=== PATIENT | female | born 1970 | race African-American/Black ===

== ENCOUNTER 2017-04-14 20:42 | Emergency (ER) | payer SELFPAY ==
[2017-04-14 20:53] VITALS: BP 133/73
== END 2017-04-14 22:00 | disposition left against medical advice (07) ==
LOC: ER 20:42
DX: Z53.21 Procedure and treatment not carried out due to patient leaving prior to being seen by health care provider (principal)

== ENCOUNTER 2017-07-19 08:24 | Emergency (ER) | payer SELFPAY ==
[2017-07-19] MEDS ORDERED: HYDROCODONE BIT/HOMATROPINE 5-1.5 MG TABLET PO ONE (08:31)
[2017-07-19] MEDS ORDERED: IPRATROPIUM/ALBUTEROL 0.5-2.5 MG/3 ML AMPUL NEB ONE ×2 (08:32)
[2017-07-19] MEDS ORDERED: PREDNISONE 20 MG TABLET PO ONE (08:32)
--- NOTE | 2017-07-19 08:32 | ER Document Report ---
ED General - General Stated Complaint: DIFFICULTY BREATHING Time Seen by Provider: 07/19/17 08:27 Mode of Arrival: Medic Information source: Patient Notes: 47-year-old female smoker presents with complaints of productive cough 1 week duration. Patient denies any fevers or chills admits to shortness of breath. Patient notes after all this coughing she has been having some blood-tinged sputum Patient notes she only smokes 3 cigarettes a day TRAVEL OUTSIDE OF THE [place] IN LAST 30 DAYS: No - HPI Onset: Last week Onset/Duration: Persistent Quality of pain: No pain Severity: Mild Pain Level: Denies Associated symptoms: Body/muscle aches, Productive cough, Shortness of breath Exacerbated by: Movement, Walking Relieved by: Denies Similar symptoms previously: No Recently seen / treated by doctor: No - Related Data Allergies/Adverse Reactions: ibuprofen [Ibuprofen] Adverse Reaction (Verified 07/30/14 23:28) GI upset Past Medical History - Social History Smoking Status: Current Every Day Smoker Cigarette use (# per day): Yes Chew tobacco use (# tins/day): No Smoking Education Provided: Yes - Patient counselled regarding cessation for 4 minutes Family History: Arthritis, CAD, CVA, Hyperlipidemia, Hypertension Pulmonary Medical History: Reports: Hx Asthma, Hx Bronchitis Denies: Hx Pneumonia Renal/ Medical History: Denies: Hx Peritoneal Dialysis Psychiatric Medical History: Reports: Hx Anxiety, Hx Attention Deficit Hyperactivity Disorder, Hx Bipolar Disorder, Hx Depression Past Surgical History: Reports: Hx Tubal Ligation - Immunizations Immunizations up to date: No Hx Diphtheria, Pertussis, Tetanus Vaccination: Yes - unsure Review of Systems - Review of Systems Notes: REVIEW OF SYSTEMS: CONSTITUTIONAL : Denies fever, chills, or sweats. Denies recent illness. EENT: Denies eye, ear, throat, or mouth pain or symptoms. Denies nasal or sinus congestion or discharge. Denies throat, tongue, or mouth swelling or difficulty swallowing. CARDIOVASCULAR: Denies chest pain. Denies palpitations or racing or irregular heart beat. Denies ankle edema. RESPIRATORY: Admits productive cough shortness of breath. GASTROINTESTINAL: Denies abdominal pain or distention. Denies nausea, vomiting , or diarrhea. Denies blood in vomitus, stools, or per rectum. Denies black, tarry stools. Denies constipation. GENITOURINARY: Denies difficulty urinating, painful urination, burning, frequency, blood in urine, or discharge. FEMALE GENITOURINARY: Denies vaginal bleeding, heavy or abnormal periods, irregular periods. Denies vaginal discharge or odor. MUSCULOSKELETAL: Admits to body aches SKIN: Denies rash, lesions or sores. HEMATOLOGIC : Denies easy bruising or bleeding. LYMPHATIC: Denies swollen, enlarged glands. NEUROLOGICAL: Denies confusion or altered mental status. Denies passing out or loss of consciousness. Denies dizziness or lightheadedness. Denies headache. Denies weakness or paralysis or loss of use of either side. Denies problems with gait or speech. Denies sensory loss, numbness, or tingling. Denies seizures. PSYCHIATRIC: Denies anxiety or stress. Denies depression, suicidal ideation, or homicidal ideation. ALL OTHER SYSTEMS REVIEWED AND NEGATIVE. PHYSICAL EXAMINATION: GENERAL: Well-appearing, well-nourished and in mild distress secondary to pain HEAD: Atraumatic, normocephalic. EYES: Pupils equal round and reactive to light, extraocular movements intact, conjunctiva are normal. ENT: Nares patent, oropharynx clear without exudates. Moist mucous membranes. NECK: Normal range of motion, supple without lymphadenopathy LUNGS: Coarse rhonchi at the bases no respiratory distress HEART: Regular rate and rhythm without murmurs ABDOMEN: Soft, nontender, nondistended abdomen. No guarding, no rebound. No masses appreciated. Female : deferred Musculoskeletal: Normal range of motion, no pitting or edema. No cyanosis. NEUROLOGICAL: Cranial nerves grossly intact. Normal speech, normal gait. Normal sensory, motor exams PSYCH: Normal mood, normal affect. SKIN: Warm, Dry, normal turgor, no rashes or lesions noted. Dictation was performed using [employer] voice recognition software Physical Exam - Vital signs Vitals: Temp Pulse Resp BP Pulse Ox 99.1 F 92 18 166/94 H 95 07/19/17 08:30 07/19/17 08:30 07/19/17 08:30 07/19/17 08:30 07/19/17 08:30 Course - Re-evaluation Re-evalutation: 07/19/17 11:05 Patient was immediately seen upon arrival, was given breathing treatments Chest x-ray was consistent with bibasilar pneumonia, patient was started on antibiotics noted significant improvement upon discharge No DVT PE risk factors Very strict return precautions were provided After performing a Medical Screening Examination, I estimate there is LOW risk for ACUTE CORONARY SYNDROME, RESPIRATORY FAILURE, SEPSIS OR MENINGITIS, thus I consider the discharge disposition reasonable. I have reevaluated this patient multiple times and no significant life threatening changes are noted. The patient and I have discussed the diagnosis and risks, and we agree with discharging home with close follow-up. We also discussed returning to the Emergency Department immediately if new or worsening symptoms occur. We have discussed the symptoms which are most concerning (e.g., changing or worsening pain, trouble swallowing or breathing, neck stiffness, fever) that necessitate immediate return. 07/19/17 11:06 - Vital Signs Vital signs: Temp Pulse Resp BP Pulse Ox 99.1 F 92 18 166/94 H 95 07/19/17 08:30 07/19/17 08:30 07/19/17 08:30 07/19/17 08:30 07/19/17 08:30 - Diagnostic Test Radiology reviewed: Image reviewed, Reports reviewed - Bibasilar pneumonia report given to patient Discharge - Discharge Clinical Impression: Hemoptysis Pneumonia Qualifiers: Pneumonia type: due to unspecified organism Laterality: bilateral Lung location : lower lobe of lung Qualified Code(s): J18.9 - Pneumonia, unspecified organism Condition: Stable Disposition: HOME, SELF-CARE Instructions: Pneumonia ([facility]) Additional Instructions: Follow up with your physician tomorrow for further care or return to the ED IMMEDIATELY if symptoms worsen or new concerns occur. If you cannot afford to follow up with your primary care physician a list of low cost clinics have been provided at the end of your discharge papers as well. Prescriptions: Azithromycin 250 mg PO ASDIR PRN #6 tablet PRN Reason: Hydrocodone/Acetaminophen [[place] 5-325 mg Tablet] 1 tab PO Q6 #10 tablet
--- NOTE | 2017-07-19 09:56 | RADIOLOGY REPORT (SQ) ---
EXAM DESCRIPTION: CHEST PA/LAT COMPLETED DATE/TIME: 07/19/2017 9:26 am REASON FOR STUDY: cough productive blood tinge COMPARISON: 11/16/2011. EXAM PARAMETERS: NUMBER OF VIEWS: two views TECHNIQUE: Digital Frontal and Lateral radiographic views of the chest acquired. RADIATION DOSE: NA LIMITATIONS: none FINDINGS: LUNGS AND PLEURA: Basilar infiltrate best visualized on the lateral view. Possibly the le ft base behind the cardiac silhouette. No pleural effusion. No pneumothorax. MEDIASTINUM AND HILAR STRUCTURES: No masses or contour abnormalities. HEART AND VASCULAR STRUCTURES: Heart normal size. No evidence for failure. BONES: No acute findings. HARDWARE: None in the chest. OTHER: No other significant finding. IMPRESSION: BASILAR INFILTRATE SUSPICIOUS FOR PNEUMONIA. TECHNICAL DOCUMENTATION: JOB ID: [id number] [employer]- All Rights Reserved
[2017-07-19] MEDS ORDERED: ALBUTEROL SULFATE HFA (90 MCG/PUFF) 8 GM MDI (1 MDI/ER DISP) IH PRN (10:28)
[2017-07-19 11:00] VITALS: BP 151/76
== END 2017-07-19 11:01 | disposition home or self-care (01) ==
LOC: ER 08:24
DX: J18.9 Pneumonia, unspecified organism (principal); R04.2 Hemoptysis; R06.02 Shortness of breath; R05 Cough; F17.210 Nicotine dependence, cigarettes, uncomplicated
CPT/HCPCS: 94640 ×2; 99285; 87804; 71020; J7512; J3490; J7620

== ENCOUNTER 2017-08-06 14:44 | Emergency (ER) | payer SELFPAY ==
--- NOTE | 2017-08-06 15:10 | ER Document Report ---
ED Medical Screen (RME) - General Chief Complaint: Psych Problem Stated Complaint: PYSCH EVAL Time Seen by Provider: 08/06/17 15:06 Mode of Arrival: Ambulatory Information source: Patient Notes: 47-year-old female states she is being evicted from her house in 10 days and had all her my stone last night has not eaten 2 days does not qualify for Medicaid has not received her medications in over a year presents with homicidal suicidal ideations I have greeted and performed a rapid initial assessment of this patient. A comprehensive ED assessment and evaluation of the patient, analysis of test results and completion of the medical decision making process will be conducted by additional ED providers. PHYSICAL EXAMINATION: GENERAL: Well-appearing, well-nourished and in no acute distress. HEAD: Atraumatic, normocephalic. EYES: Pupils equal round extraocular movements intact, conjunctiva are normal. ENT: Nares patent NECK: Normal range of motion LUNGS: No respiratory distress Musculoskeletal: Normal range of motion NEUROLOGICAL: Normal speech, normal gait. PSYCH: Tearful SKIN: Warm, Dry, normal turgor, no rashes or lesions noted. TRAVEL OUTSIDE OF THE [place] IN LAST 30 DAYS: No - Related Data Allergies/Adverse Reactions: ibuprofen [Ibuprofen] Adverse Reaction (Verified 07/30/14 23:28) GI upset Past Medical History - Social History Chew tobacco use (# tins/day): No Frequency of alcohol use: Rare Drug Abuse: Cocaine, Marijuana Pulmonary Medical History: Reports: Hx Asthma, Hx Bronchitis Denies: Hx Pneumonia Renal/ Medical History: Denies: Hx Peritoneal Dialysis Psychiatric Medical History: Reports: Hx Anxiety, Hx Attention Deficit Hyperactivity Disorder, Hx Bipolar Disorder, Hx Depression Past Surgical History: Reports: Hx Tubal Ligation - Immunizations Immunizations up to date: No Hx Diphtheria, Pertussis, Tetanus Vaccination: Yes - unsure History of Influenza Vaccine for 08/2017 - 12/2017 Season: No Physical Exam - Vital signs Vitals: Temp Pulse Resp BP Pulse Ox 98.1 F 85 20 158/95 H 98 08/06/17 14:51 08/06/17 14:51 08/06/17 14:51 08/06/17 14:51 08/06/17 14:51 Course - Vital Signs Vital signs: Temp Pulse Resp BP Pulse Ox 98.1 F 85 20 158/95 H 98 08/06/17 14:51 08/06/17 14:51 08/06/17 14:51 08/06/17 14:51 08/06/17 14:51
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
[2017-08-06] MEDS ORDERED: LORAZEPAM 1 MG TABLET PO ONE (16:51)
[2017-08-06 17:17] LABS: ABSOLUTE EOSINOPHILS # (AUTO) 0.3 10^3/uL (0.0-0.6); ABSOLUTE LYMPHOCYTES (AUTO) 2.1 10^3/uL (0.5-4.7); ABSOLUTE MONOCYTES (AUTO) 0.5 10^3/uL (0.1-1.4); ABSOLUTE NEUT (AUTO) 2.6 10^3/uL (1.7-8.2); BASOPHILS % (AUTO) 0.6 % (0-2); EOSINOPHILS % (AUTO) 5.2 % (0-6); HEMATOCRIT 41.2 % (36.0-47.0); HEMOGLOBIN 14.2 g/dL (12.0-15.5); HGB HCT DIFFERENCE 1.4; LYMPHOCYTES % (AUTO) 38.7 % (13-45); MEAN CORPUSCULAR HEMOGLOBIN 32.9 pg (27.0-33.4); MEAN CORPUSCULAR HGB CONC 34.6 g/dL (32.0-36.0); MEAN CORPUSCULAR VOLUME 95 fl (80-97); MONOCYTES % (AUTO) 8.1 % (3-13); RED BLOOD COUNT 4.33 10^6/uL (3.72-5.28); RED CELL DISTRIBUTION WIDTH 14.1 % (11.5-14.0); SEGMENTED NEUTROPHILS % (AUTO) 47.4 % (42-78); WHITE BLOOD COUNT 5.5 10^3/uL (4.0-10.5)
[2017-08-06 17:33] LABS: APPEARANCE,URINE CLEAR; BILIRUBIN,URINE NEGATIVE (NEGATIVE); GLUCOSE, URINE NEGATIVE (NEGATIVE); KETONES,URINE NEGATIVE (NEGATIVE); LEUKOCYTE ESTERASE,URINE TRACE (NEGATIVE); NITRITE,URINE NEGATIVE (NEGATIVE); PROTEIN,URINE 30 mg/dL (NEGATIVE); URINE SPECIFIC GRAVITY 1.029
[2017-08-06 17:42] LABS: URINE BARBITURATES SCREEN NEGATIVE; URINE METHADONE SCREEN NEGATIVE; URINE OPIATES LOW NEGATIVE; URINE PHENCYCLIDINE SCREEN NEGATIVE
[2017-08-06 17:47] LABS: ALANINE AMINOTRANSFERASE 26 U/L (9-52); ALBUMIN 4.3 g/dL (3.5-5.0); ALCOHOL < 10 mg/dL (NONE DETECTED); ALKALINE PHOSPHATASE 66 U/L (38-126); ANION GAP 6 (5-19); ASPARTATE AMINO TRANSFERASE 23 U/L (14-36); BILIRUBIN,DIRECT 0.3 mg/dL (0.0-0.4); BILIRUBIN,TOTAL 0.7 mg/dL (0.2-1.3); BLOOD UREA NITROGEN 13 mg/dL (7-20); CALCIUM 9.6 mg/dL (8.4-10.2); CARBON DIOXIDE 30 mmol/L (22-30); CHLORIDE 101 mmol/L (98-107); CREATININE RESULT 0.84 mg/dL (0.52-1.25); GLUCOSE 77 mg/dL (75-110); SODIUM 137.1 mmol/L (137-145); TOTAL PROTEIN 7.5 g/dL (6.3-8.2)
[2017-08-06] MEDS ORDERED: TRAZODONE HCL 50 MG TABLET PO ONE (23:21)
[2017-08-06] MEDS ORDERED: NICOTINE 21 MG/24 HR PATCH.TD24 TD ONE (23:22)
[2017-08-07 08:06] VITALS: BP 147/71
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
--- NOTE | 2017-08-07 11:12 | EKG REPORT ---
SEVERITY:- ABNORMAL ECG - SINUS RHYTHM PROBABLE LEFT ATRIAL ABNORMALITY LEFT VENTRICULAR HYPERTROPHY : Confirmed by: Freya Webb MD 07-Aug-2017 11:12:02
== END 2017-08-07 12:15 | disposition home or self-care (01) ==
LOC: ER 14:44
DX: Z59.9 Problem related to housing and economic circumstances, unspecified (principal); F14.10 Cocaine abuse, uncomplicated; F12.10 Cannabis abuse, uncomplicated; R45.851 Suicidal ideations; R45.850 Homicidal ideations; F17.210 Nicotine dependence, cigarettes, uncomplicated; Z88.6 Allergy status to analgesic agent; Z98.51 Tubal ligation status; I10 Essential (primary) hypertension
CPT/HCPCS: 36415; 80053; 80307; 81001; 84703; 85025; 93005; 93010; 99285

== ENCOUNTER 2018-06-06 16:43 | Emergency (ER) | payer SELFPAY ==
--- NOTE | 2018-06-06 16:58 | ER Document Report ---
HPI - HPI Patient complains to provider of: Cough and congestion Onset: Other - Over a week Onset/Duration: Persistent Pain Level: 3 Context: 48-year-old female smoker complaining of cough and congestion for over a week. No chest pain or shortness of breath. No fever or chills. Associated Symptoms: None Exacerbated by: Denies Relieved by: Denies Similar symptoms previously: Yes Recently seen / treated by doctor: No - ROS ROS below otherwise negative: Yes Systems Reviewed and Negative: Yes All other systems reviewed and negative - REPRODUCTIVE Reproductive: DENIES: : Past Medical History - General Information source: Patient - Social History Smoking Status: Current Every Day Smoker Frequency of alcohol use: None Drug Abuse: None Lives with: Family Family History: Arthritis, CAD, CVA, Hyperlipidemia, Hypertension Pulmonary Medical History: Reports: Hx Asthma, Hx Bronchitis Psychiatric Medical History: Reports: Hx Anxiety, Hx Attention Deficit Hyperactivity Disorder, Hx Bipolar Disorder, Hx Depression Past Surgical History: Reports: Hx Tubal Ligation - Immunizations Immunizations up to date: No Hx Diphtheria, Pertussis, Tetanus Vaccination: Yes - unsure Vertical Provider Document - CONSTITUTIONAL Agree With Documented VS: Yes Exam Limitations: No Limitations - INFECTION CONTROL TRAVEL OUTSIDE OF THE [place] IN LAST 30 DAYS: No - HEENT HEENT: Pharyngeal Erythema. negative: Conjuctival Injection, Tympanic Membrane Red, Tympanic Membrane Bulging - NECK Neck: Supple. negative: Lymphadenopathy-Left, Lymphadenopathy-Right - RESPIRATORY Respiratory: Wheezing - Inspiratory and expiratory wheezing bilateral. negative : Rales - CARDIOVASCULAR Cardiovascular: Regular Rate, Regular Rhythm - GI/ABDOMEN Gastrointestinal: Abdomen Soft, Abdomen Non-Tender, No Organomegaly - MUSCULOSKELETAL/EXTREMETIES Musculoskeletal/Extremeties: MAEW - NEURO Level of Consciousness: Alert - DERM Integumentary: No Rash Course - Re-evaluation Re-evalutation: 06/06/18 There is minimal wheezing remaining after the breathing treatments. The chest x -ray is negative per radiologist for infiltrate. - Vital Signs Vital signs: Temp Pulse Resp BP Pulse Ox 98.9 F 75 16 159/79 H 97 06/06/18 16:51 06/06/18 16:51 06/06/18 16:51 06/06/18 16:51 06/06/18 16:51 Discharge - Discharge Clinical Impression: Asthmatic bronchitis Qualifiers: Asthma severity: unspecified severity Asthma persistence: unspecified Asthma complication type: uncomplicated Qualified Code(s): J45.909 - Unspecified asthma , uncomplicated Condition: Good Disposition: HOME, SELF-CARE Instructions: Azithromycin ([facility]), Bronchitis With Bronchospasm (Wheezing) ([facility]) , Inhaled Bronchodilators ([facility]), Stop Smoking ([facility]), Steroid Medication Additional Instructions: Plenty of fluids Return to the emergency room for any chest pain or shortness of breath or trouble breathing Use the inhaler 2 puffs every 3 hours to help get the mucus out Prednisone for 4 more days Azithromycin 250 mg daily for the next 4 days Quit smoking Prescriptions: Albuterol Sulfate [Proair HFA Inhalation Aerosol 8.5 gm MDI] 2 puff IH Q3HP PRN #1 [id number].[id number] PRN Reason: Azithromycin [Zithromax] 250 mg PO DAILY #4 tablet Prednisone [Deltasone 20 mg Tablet] 40 mg PO DAILY #8 tablet Forms: Return to Work
[2018-06-06] MEDS ORDERED: ALBUTEROL SULFATE 0.083% NEB 2.5 MG/3 ML AMPUL NEB ONE (17:06)
[2018-06-06] MEDS ORDERED: IPRATROPIUM/ALBUTEROL 0.5-2.5 MG/3 ML AMPUL NEB ONE (17:06)
[2018-06-06] MEDS ORDERED: PREDNISONE 20 MG TABLET PO ONE (17:06)
--- NOTE | 2018-06-06 18:07 | RADIOLOGY REPORT (SQ) ---
EXAM DESCRIPTION: CHEST 2 VIEWS COMPLETED DATE/TIME: 06/06/2018 5:59 pm REASON FOR STUDY: cough, wheeze COMPARISON: 07/19/2017, 11/16/2011 EXAM PARAMETERS: NUMBER OF VIEWS: two views TECHNIQUE: Digital Frontal and Lateral radiographic views of the chest acquired. RADIATION DOSE: NA LIMITATIONS: none FINDINGS: LUNGS AND PLEURA: No opacities, masses or pneumothorax. No pleural effusion. MEDIASTINUM AND HILAR STRUCTURES: No masses or contour abnormalities. HEART AND VASCULAR STRUCTURES: Borderline cardiomegaly BONES: No acute findings. HARDWARE: None in the chest. OTHER: No other significant finding. IMPRESSION: NO ACUTE RADIOGRAPHIC FINDING IN THE CHEST. TECHNICAL DOCUMENTATION: JOB ID: [id number] [employer]- All Rights Reserved Reading location - IP/workstation name: [email or web address]
[2018-06-06] MEDS ORDERED: AZITHROMYCIN 250 MG TABLET PO ONE (18:28)
[2018-06-06] MEDS ORDERED: ALBUTEROL SULFATE HFA (90 MCG/PUFF) 200 PUFF/8.5 GM MDI IH ONE (18:28)
[2018-06-06 18:46] VITALS: BP 147/73
== END 2018-06-06 18:44 | disposition home or self-care (01) ==
LOC: ER 16:43
DX: J45.909 Unspecified asthma, uncomplicated (principal); R05 Cough; I10 Essential (primary) hypertension; F17.200 Nicotine dependence, unspecified, uncomplicated
CPT/HCPCS: 94640 ×2; 99283; 71046; J7512; J3490; J7620

== ENCOUNTER 2018-09-29 05:55 | Emergency (ER) | payer SELFPAY ==
[2018-09-29] MEDS ORDERED: KETOROLAC TROMETHAMINE 60 MG/2 ML SDV IM ONE (07:13)
--- NOTE | 2018-09-29 07:20 | ER Document Report ---
ED Hand/Wrist Injury - General Chief Complaint: Hand Pain Stated Complaint: THUMB PAIN/STIFFNESS Time Seen by Provider: 09/29/18 07:13 TRAVEL OUTSIDE OF THE [place] IN LAST 30 DAYS: No - HPI Injury to: Thumb Onset: Other - 2 months Timing: Constant, Worse Quality of pain: Achy Severity: Moderate Notes: Patient is a 48-year-old female that presents to the emergency department for chief complaint of bilateral thumb pain. Patient's pain started 2 months ago. It is worse with movement and relieved some with rest. She denies taking [id number] medications. She states she feels her thumbs clicking and getting stuck. Occasionally she has to use her other hand to straighten her thumb out. 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 She is right-hand dominant. She denies any injury or trauma. She denies any swelling or redness. Past Medical History: Reviewed in chart Past Surgical History: Negative Social History: Daily tobacco. Denies drugs and alcohol Family History: Reviewed and noncontributory for presenting illness Allergies: Reviewed, see documented allergy list. REVIEW OF SYSTEMS: CONSTITUTIONAL : No fever No chills No diaphoresis No recent illness EENT: No vision changes No congestion No sore throat CARDIOVASCULAR: No chest pain No palpitations RESPIRATORY: No shortness of breath No cough No difficulty breathing GASTROINTESTINAL: No abdominal pain No nausea No vomiting No diarrhea GENITOURINARY: No dysuria No hematuria No difficulty urinating MUSCULOSKELETAL: No back pain No leg pain Bilateral thumb pain SKIN: No rashes No lesions LYMPHATIC: No swollen, enlarged glands. NEUROLOGICAL: No lightheadedness No headache No weakness No paresthesias PSYCHIATRIC: No anxiety No depression PHYSICAL EXAMINATION: Vital signs reviewed, nursing noted reviewed. GENERAL: Well-appearing, well-nourished and in no acute distress. HEAD: Atraumatic, normocephalic. EYES: Eyes appear normal, extraocular movements intact, sclera anicteric, conjunctiva are normal. ENT: nares patent, oropharynx clear without exudates. Moist mucous membranes. NECK: Normal range of motion, supple without lymphadenopathy LUNGS: Breath sounds clear to auscultation bilaterally and equal. No wheezes rales or rhonchi. HEART: Regular rate and rhythm without murmurs ABDOMEN: Soft, nontender, normoactive bowel sounds. No rebound, guarding, or rigidity. No masses appreciated. EXTREMITIES: No bony deformity. Nontender, no pitting or edema. Bilateral thumb flexion contractures able to be actively extended by patient NEUROLOGICAL: No focal neurological deficits. Moves all extremities spontaneously Motor and sensory grossly intact on exam. PSYCH: Normal mood, normal affect. SKIN: Warm, Dry, normal turgor, no rashes or lesions noted on exposed skin - Related Data Allergies/Adverse Reactions: ibuprofen [Ibuprofen] Adverse Reaction (Verified 07/30/14 23:28) GI upset Past Medical History - Social History Smoking Status: Current Every Day Smoker Family History: Arthritis, CAD, CVA, Hyperlipidemia, Hypertension Pulmonary Medical History: Reports: Hx Asthma, Hx Bronchitis Denies: Hx Pneumonia Renal/ Medical History: Denies: Hx Peritoneal Dialysis Psychiatric Medical History: Reports: Hx Anxiety, Hx Attention Deficit Hyperactivity Disorder, Hx Bipolar Disorder, Hx Depression Past Surgical History: Reports: Hx Tubal Ligation - Immunizations Immunizations up to date: No Hx Diphtheria, Pertussis, Tetanus Vaccination: Yes - unsure Physical Exam - Vital signs Vitals: Temp Pulse Resp BP Pulse Ox 97.9 F 83 20 135/79 H 96 09/29/18 05:59 09/29/18 05:59 09/29/18 05:59 09/29/18 05:59 09/29/18 05:59 Course - Re-evaluation Re-evalutation: 09/29/18 07:17 Vitals reviewed. Nursing notes reviewed. Patient has bilateral thumb flexion contractures that she is able to actively extend. She occasionally does have to passively extend her thumb because of it gets stuck. There is no history of trauma and she has no bony tenderness or deformity, x-ray not currently indicated. Patient will be started on a course of naproxen for anti- inflammatory properties. She was counseled on resting. She will be referred to orthopedics for further management. - Vital Signs Vital signs: Temp Pulse Resp BP Pulse Ox 97.9 F 83 20 135/79 H 96 09/29/18 05:59 09/29/18 05:59 09/29/18 05:59 09/29/18 05:59 09/29/18 05:59 Discharge - Discharge Clinical Impression: Dupuytren's contracture of both hands Condition: Stable Disposition: HOME, SELF-CARE Additional Instructions: Please return to the emergency department if you have any worsening, or concern of your symptoms. Please return to the emergency department if you develop chest pain, difficulty breathing, severe abdominal pain, or ongoing vomiting. Please follow-up with your primary care physician in 2-3 days and any other recommended physicians. If prescribed, take all medications as directed. If you have any questions or concerns do not hesitate to return the emergency department for evaluation. The contractures of your thumbs are related to inflammation around the tendons that allow you to bend your thumbs. This inflammation can be progressive and may ultimately require surgery for repair. It is important that you follow-up with orthopedic surgery for further evaluation and management. Prescriptions: Naproxen 500 mg PO BID PRN #30 tablet PRN Reason: Pain Scale Of 1 Forms: Return to Work Referrals: ORI MCKEON MD [ACTIVE STAFF] - Follow up in 1 week
[2018-09-29 07:49] VITALS: BP 142/78
== END 2018-09-29 07:49 | disposition home or self-care (01) ==
LOC: ER 05:55
DX: M72.0 Palmar fascial fibromatosis [Dupuytren] (principal); F17.200 Nicotine dependence, unspecified, uncomplicated; J45.909 Unspecified asthma, uncomplicated
CPT/HCPCS: 99283; 96372; J1885

== ENCOUNTER 2019-01-19 13:47 | Emergency (ER) | payer SELFPAY ==
--- NOTE | 2019-01-19 14:35 | ER Document Report ---
ED Medical Screen (RME) - General Chief Complaint: Breast Problem Stated Complaint: BREAST PROBLEM Time Seen by Provider: 01/19/19 14:28 Notes: 48-year-old female patient comes emergency room complaining of blood coming from the left nipple for the past 2 months. She also complains of bilateral thumb locking and pain for the past month, but she was actually seen here on 09/29/2018 complaining of the thumbs locking. She did not follow-up with Orth [facility] as recommended. She states she is homeless right now and has no family in the area and no job. She also complains of going through menopause at this time. I have greeted and performed a rapid initial assessment of this patient. A comprehensive ED assessment and evaluation of the patient, analysis of test results and completion of the medical decision making process will be conducted by additional ED providers. TRAVEL OUTSIDE OF THE [place] IN LAST 30 DAYS: No - Related Data Allergies/Adverse Reactions: ibuprofen [Ibuprofen] Adverse Reaction (Verified 01/19/19 13:50) GI upset Past Medical History - Social History Chew tobacco use (# tins/day): No Frequency of alcohol use: None Drug Abuse: None Pulmonary Medical History: Reports: Hx Asthma, Hx Bronchitis Denies: Hx Pneumonia Renal/ Medical History: Denies: Hx Peritoneal Dialysis Psychiatric Medical History: Reports: Hx Anxiety, Hx Attention Deficit Hyperactivity Disorder, Hx Bipolar Disorder, Hx Depression Past Surgical History: Reports: Hx Tubal Ligation - Immunizations Immunizations up to date: No Hx Diphtheria, Pertussis, Tetanus Vaccination: Yes - unsure History of Influenza Vaccine for 08/2017 - 12/2017 Season: No Physical Exam - Vital signs Vitals: Temp Pulse Resp BP Pulse Ox 98.0 F 86 16 149/101 H 98 01/19/19 13:55 01/19/19 13:55 01/19/19 13:55 01/19/19 13:55 01/19/19 13:55 Course - Vital Signs Vital signs: Temp Pulse Resp BP Pulse Ox 98.0 F 86 16 149/101 H 98 01/19/19 13:55 01/19/19 13:55 01/19/19 13:55 01/19/19 13:55 01/19/19 13:55
[2019-01-19 15:35] LABS: ABSOLUTE BASOPHILS # (AUTO) 0.1 10^3/uL (0.0-0.2); ABSOLUTE EOSINOPHILS # (AUTO) 1.4 10^3/uL (0.0-0.6); ABSOLUTE LYMPHOCYTES (AUTO) 2.9 10^3/uL (0.5-4.7); ABSOLUTE MONOCYTES (AUTO) 0.6 10^3/uL (0.1-1.4); ABSOLUTE NEUT (AUTO) 2.7 10^3/uL (1.7-8.2); EOSINOPHILS % (AUTO) 18.7 % (0-6); HEMATOCRIT 42.3 % (36.0-47.0); HEMOGLOBIN 14.7 g/dL (12.0-15.5); LYMPHOCYTES % (AUTO) 37.3 % (13-45); MEAN CORPUSCULAR HEMOGLOBIN 33.2 pg (27.0-33.4); MEAN CORPUSCULAR HGB CONC 34.8 g/dL (32.0-36.0); MEAN CORPUSCULAR VOLUME 95 fl (80-97); MONOCYTES % (AUTO) 7.3 % (3-13); PLATELET COUNT 205 10^3/uL (150-450); RED BLOOD COUNT 4.43 10^6/uL (3.72-5.28); RED CELL DISTRIBUTION WIDTH 14.3 % (11.5-14.0); SEGMENTED NEUTROPHILS % (AUTO) 35.7 % (42-78); TOTAL CELLS COUNTED % (AUTO) 100 %; WHITE BLOOD COUNT 7.7 10^3/uL (4.0-10.5)
[2019-01-19 15:55] LABS: ALANINE AMINOTRANSFERASE 19 U/L (9-52); ALBUMIN 3.9 g/dL (3.5-5.0); ALKALINE PHOSPHATASE 84 U/L (38-126); ANION GAP 8 (5-19); ASPARTATE AMINO TRANSFERASE 23 U/L (14-36); BILIRUBIN,DIRECT 0.3 mg/dL (0.0-0.4); BILIRUBIN,TOTAL 0.6 mg/dL (0.2-1.3); BLOOD UREA NITROGEN 12 mg/dL (7-20); CALCIUM 9.9 mg/dL (8.4-10.2); CARBON DIOXIDE 29 mmol/L (22-30); CHLORIDE 101 mmol/L (98-107); GLUCOSE 138 mg/dL (75-110); POTASSIUM 4.4 mmol/L (3.6-5.0); SODIUM 138.3 mmol/L (137-145); TOTAL PROTEIN 6.9 g/dL (6.3-8.2)
--- NOTE | 2019-01-19 16:10 | ER Document Report ---
Addendum entered and electronically signed by ELVIA SALEH PA-C 01/19/19 16:50: Discharge - Discharge Clinical Impression: Nipple discharge, bloody, Tendon dysfunction, Pinched nerve Condition: Good Disposition: HOME, SELF-CARE Instructions: Breast Discharge ([facility]), Breast Lumps ([facility]), Breast Self- Examination ([facility]), Tendonitis ([facility]) Additional Instructions: PLEASE CALL JOLENE DE SANTIAGO RN WHO IS OUR HEATER INSTALLER. SHE WILL HELP YOU TO COORDINATE GETTING THE REQUIRED IMAGING AND APPROPRIATE FOLLOW-UP. SHE CAN BE REACHED AT [phone]. YOU WILL NEED TO GET SCREENING MAMMOGRAM DONE AN OUTPATIENT, BUT MAKE SURE THAT YOU TOUCH BASE WITH OUR HEATER INSTALLER FIRST. IF YOU DO NOT GET IN TOUCH WITH HER RIGHT AWAY, KEEP PERSISTING. IF NEED BE, YOU CAN RETURN TO THE ER, BUT YOU WILL NEED TO GET A MAMMOGRAM TO PROPERLY DIAGNOSE YOUR NIPPLE DISCHARGE. Prescriptions: Naproxen 500 mg PO BID 10 Days #20 tablet Forms: Follow-Up Outpatient Testing Referrals: [facility] [Provider Group] - Follow up as needed Addendum entered and electronically signed by ELVIA SALEH PA-C 01/19/19 16:48: Discharge - Discharge Clinical Impression: Nipple discharge, bloody, Tendon dysfunction, Pinched nerve Condition: Good Disposition: HOME, SELF-CARE Instructions: Breast Discharge ([facility]), Breast Lumps ([facility]), Breast Self- Examination ([facility]), Tendonitis ([facility]) Additional Instructions: PLEASE CALL JOLENE DE SANTIAGO RN WHO IS OUR HEATER INSTALLER. SHE WILL HELP YOU TO COORDINATE GETTING THE REQUIRED IMAGING AND APPROPRIATE FOLLOW-UP. SHE CAN BE REACHED AT [phone]. YOU WILL NEED TO GET SCREENING MAMMOGRAM DONE AN OUTPATIENT, BUT MAKE SURE THAT YOU TOUCH BASE WITH OUR HEATER INSTALLER FIRST. IF YOU DO NOT GET IN TOUCH WITH HER RIGHT AWAY, KEEP PERSISTING. IF NEED BE, YOU CAN RETURN TO THE ER, BUT YOU WILL NEED TO GET A MAMMOGRAM TO PROPERLY DIAGNOSE YOUR NIPPLE DISCHARGE. Prescriptions: Naproxen 500 mg PO BID 10 Days #20 tablet Forms: Follow-Up Outpatient Testing Referrals: [facility] [Provider Group] - Follow up as needed Addendum entered and electronically signed by ELVIA SALEH PA-C 01/19/19 16:46: Physical Exam - Vital signs Vitals: Temp Pulse Resp BP Pulse Ox 98.0 F 86 16 149/101 H 98 01/19/19 13:55 01/19/19 13:55 01/19/19 13:55 01/19/19 13:55 01/19/19 13:55 - Notes Notes: General: Well-developed, well-nourished. In no acute distress. Non-toxic appearing. Cardiac: Well-perfused. Regular rate and rhythm. No murmurs, rubs, or gallops. Pulmonary: No respiratory distress. No cyanosis. Bilateral lung fiels are clear to auscultation. Abdominal: Non-distended. Non-rigid. Bowels sounds are present in all four quadrants. No guarding or rebound. HEENT: Head is atraumatic. Conjunctivae not reddened. No tearing. PERRL. EOMI. Orbits atraumatic. No periorbital swelling or erythema. Oropharynx is without erythema, swelling, or exudates. Neck: Supple. No adenopathy. No meningismus. Dermatologic: Warm with good turgor. No rash. Atraumatic. Chest: Atraumatic. No chest wall tenderness to palpation. Musculoskeletal: Bilateral thumbs are examined. They are atraumatic. The right shoulder is examined. It is atraumatic with full range of motion. Genitourinary: Examination deferred Neurologic: No gross neurologic deficits. Psychiatric: Normal mood. Addendum entered and electronically signed by ELVIA SALEH PA-C 01/19/19 16:43: History of Present Illiness - HPI Note: Besides the nipple drainage, patient wants to be assessed for knuckles on her t humbs that are locking up as well she is having some pain in her right shoulder that is causing numbness in 2 of her fingers of her right hand. All of this is atraumatic and she has had all of it before and has been treated for all of this before. Requesting splints for her thumbs and pain medication Original Note: ED General - General Chief Complaint: Breast Problem Stated Complaint: BREAST PROBLEM Time Seen by Provider: 01/19/19 14:28 Mode of Arrival: Ambulatory Information source: Patient TRAVEL OUTSIDE OF THE [place] IN LAST 30 DAYS: No - HPI Patient complains to provider of: Left nipple discharge Onset: Other - Symptoms for 2 months Onset/Duration: Gradual Quality of pain: No pain Severity: None Pain Level: Denies Associated symptoms: Other - Reports unintended weight loss. denies: Chills, Fever Exacerbated by: Denies Relieved by: Denies Similar symptoms previously: No Recently seen / treated by doctor: No Notes: Patient is a 48-year-old homeless -Polish female with history of tobacco abuse and coming in today to be checked for a painless left breast bloody nipple discharge. Patient relates loss of 10 pounds in the last 2 weeks. Does not have any fevers or chills. Does not know about any particular family history of breast cancer. - Related Data Allergies/Adverse Reactions: ibuprofen [Ibuprofen] Adverse Reaction (Verified 01/19/19 13:50) GI upset Past Medical History - General Information source: Patient - Social History Smoking Status: Current Some Day Smoker Chew tobacco use (# tins/day): No Frequency of alcohol use: None Drug Abuse: None Family History: Reviewed & Not Pertinent, Arthritis, CAD, CVA, Hyperlipidemia, Hypertension Patient has suicidal ideation: No Patient has homicidal ideation: No Pulmonary Medical History: Reports: Hx Asthma, Hx Bronchitis Denies: Hx Pneumonia Renal/ Medical History: Denies: Hx Peritoneal Dialysis Psychiatric Medical History: Reports: Hx Anxiety, Hx Attention Deficit Hyperactivity Disorder, Hx Bipolar Disorder, Hx Depression Past Surgical History: Reports: Hx Tubal Ligation - Immunizations Immunizations up to date: No Hx Diphtheria, Pertussis, Tetanus Vaccination: Yes - unsure Review of Systems - Review of Systems Notes: Constitutional: No fevers. No chills. EENT: No eye redness. No eye pain. No ear pain. No sore throat. Cardiovascular: No chest pain. No palpitations. Respiratory: No cough. No shortness of breath. No respiratory distress. Gastrointestinal: No abdominal pain. No nausea, vomiting, or diarrhea. Genitourinary: Atraumatic. No lesions. No pain. No discharge. Musculoskeletal: Atraumatic. No swelling. No deformities. Positive left breast nipple discharge Skin: No rash or lesions. Lymphatic: No swollen lymph nodes. Neurologic: No headache. No syncope. Psychiatric: No suicidal or homicidal ideation. Physical Exam - Vital signs Vitals: Temp Pulse Resp BP Pulse Ox 98.0 F 86 16 149/101 H 98 01/19/19 13:55 01/19/19 13:55 01/19/19 13:55 01/19/19 13:55 01/19/19 13:55 - Notes Notes: General: Well-developed, well-nourished. In no acute distress. Non-toxic appearing. Cardiac: Well-perfused. Regular rate and rhythm. No murmurs, rubs, or gallops. Chest: Bilateral breasts examined. RN there to tabulating clerk me. Breasts are symmetric bilaterally. No masses, lumps or bumps appreciated on either side. There is a serosanguineous drainage from the left nipple with nipple squeeze. There is no peau d'orange texture. There is no appreciable axillary adenopathy. Pulmonary: No respiratory distress. No cyanosis. Bilateral lung fiels are clear to auscultation. Abdominal: Non-distended. Non-rigid. Bowels sounds are present in all four quadrants. No guarding or rebound. HEENT: Head is atraumatic. Conjunctivae not reddened. No tearing. PERRL. EOMI. Orbits atraumatic. No periorbital swelling or erythema. Oropharynx is without erythema, swelling, or exudates. Neck: Supple. No adenopathy. No meningismus. Dermatologic: Warm with good turgor. No rash. Atraumatic. Chest: Atraumatic. No chest wall tenderness to palpation. Musculoskeletal: Moves all extremities well. No range of motion deficits. no muscular or joint tenderness. No paraspinal muscle tenderness. no midline spinal tenderness or step-off. Genitourinary: Examination deferred Neurologic: No gross neurologic deficits. Psychiatric: Normal mood. Course - Vital Signs Vital signs: Temp Pulse Resp BP Pulse Ox 98.0 F 86 16 149/101 H 98 01/19/19 13:55 01/19/19 13:55 01/19/19 13:55 01/19/19 13:55 01/19/19 13:55 - Laboratory Result Diagrams: 01/19/19 15:15 01/19/19 15:15 Discharge - Discharge Clinical Impression: Nipple discharge, bloody Condition: Good Disposition: HOME, SELF-CARE Instructions: Breast Discharge ([facility]), Breast Lumps ([facility]), Breast Self- Examination ([facility]) Additional Instructions: PLEASE CALL JOLENE DE SANTIAGO RN WHO IS OUR HEATER INSTALLER. SHE WILL HELP YOU TO COORDINATE GETTING THE REQUIRED IMAGING AND APPROPRIATE FOLLOW-UP. SHE CAN BE REACHED AT [phone]. YOU WILL NEED TO GET SCREENING MAMMOGRAM DONE AN OUTPATIENT, BUT MAKE SURE THAT YOU TOUCH BASE WITH OUR HEATER INSTALLER FIRST. IF YOU DO NOT GET IN TOUCH WITH HER RIGHT AWAY, KEEP PERSISTING. IF NEED BE, YOU CAN RETURN TO THE ER, BUT YOU WILL NEED TO GET A MAMMOGRAM TO PROPERLY DIAGNOSE YOUR NIPPLE DISCHARGE. Forms: Follow-Up Outpatient Testing Referrals: [facility] [Provider Group] - Follow up as needed
[2019-01-19 17:02] VITALS: BP 187/90
== END 2019-01-19 16:58 | disposition home or self-care (01) ==
LOC: ER 13:47
DX: N64.52 Nipple discharge (principal); G58.9 Mononeuropathy, unspecified; M25.511 Pain in right shoulder; F17.200 Nicotine dependence, unspecified, uncomplicated; Z88.6 Allergy status to analgesic agent; Z98.51 Tubal ligation status
CPT/HCPCS: 36415; 80053; 85025; 99283

== ENCOUNTER 2019-05-15 10:29 | Emergency (ER) | payer SELFPAY ==
--- NOTE | 2019-05-15 10:42 | ER Document Report ---
ED Medical Screen (RME) - General Chief Complaint: STD Exposure Stated Complaint: POSSIBLE STD Time Seen by Provider: 05/15/19 10:37 Notes: Patient is a 48-year-old female presents to the emergency department for potential exposure to sexually transmitted disease. Patient states a sexual contact of her called and told her that he tested positive for gonorrhea and she should be evaluated. Patient is denying any vaginal discharge, odor, abdominal pain to me at this time. I discussed with patient performing self swabs versus a pelvic exam. Patient states "you are getting paid to do this job, why should I have to self swab when I am not getting paid." Patient is agreeing to a pelvic exam. GENERAL: Alert, interacts well. No acute distress. ABDOMEN: Soft, non-tender. Non-distended. Bowel sounds present in all 4 quadrants. I have greeted and performed a rapid initial assessment of this patient. A comprehensive ED assessment and evaluation of the patient, analysis of test results and completion of the medical decision making process will be conducted by additional ED providers. I have specifically instructed the patient or family members with the patient to immediately return to any nursing staff should anything change in the patient's condition or with their chief complaint. This medical record was dictated with voice recognizing software. There may be grammatical, syntax errors that are unintended. TRAVEL OUTSIDE OF THE [place] IN LAST 30 DAYS: No - Related Data Allergies/Adverse Reactions: ibuprofen [Ibuprofen] Adverse Reaction (Verified 05/15/19 10:30) GI upset Past Medical History Pulmonary Medical History: Reports: Hx Asthma, Hx Bronchitis Denies: Hx Pneumonia Renal/ Medical History: Denies: Hx Peritoneal Dialysis Psychiatric Medical History: Reports: Hx Anxiety, Hx Attention Deficit Hyperactivity Disorder, Hx Bipolar Disorder, Hx Depression Past Surgical History: Reports: Hx Tubal Ligation - Immunizations Immunizations up to date: No Hx Diphtheria, Pertussis, Tetanus Vaccination: Yes - unsure History of Influenza Vaccine for 08/2017 - 12/2017 Season: No Physical Exam - Vital signs Vitals: Temp Pulse Resp BP Pulse Ox 98.0 F 75 16 168/76 H 98 05/15/19 10:32 05/15/19 10:32 05/15/19 10:32 05/15/19 10:32 05/15/19 10:32 Course - Vital Signs Vital signs: Temp Pulse Resp BP Pulse Ox 98.0 F 75 16 168/76 H 98 05/15/19 10:32 05/15/19 10:32 05/15/19 10:32 05/15/19 10:32 05/15/19 10:32
[2019-05-15] MEDS ORDERED: CEFTRIAXONE INJ 500 MG VIAL IM ONE (11:32)
[2019-05-15] MEDS ORDERED: LIDOCAINE 1% INJ (10 MG/ML) 10 ML MDV INJ ONE (11:33)
[2019-05-15] MEDS ORDERED: AZITHROMYCIN 1 GM SUSP PACKET PO ONE (11:34)
[2019-05-15 11:38] LABS: APPEARANCE,URINE SLIGHTLY-CLOUDY; BILIRUBIN,URINE NEGATIVE (NEGATIVE); COLOR,URINE YELLOW; GLUCOSE, URINE NEGATIVE (NEGATIVE); KETONES,URINE TRACE mg/dL (NEGATIVE); LEUKOCYTE ESTERASE,URINE MODERATE (NEGATIVE); NITRITE,URINE NEGATIVE (NEGATIVE); PROTEIN,URINE NEGATIVE (NEGATIVE); URINE SPECIFIC GRAVITY 1.024; UROBILINOGEN,URINE NEGATIVE mg/dL (<2.0)
--- NOTE | 2019-05-15 11:42 | ER Document Report ---
ED GI/ - General Chief Complaint: STD Exposure Stated Complaint: POSSIBLE STD Time Seen by Provider: 05/15/19 10:37 Notes: Patient says that her recent sexual partner called her to tell her that he has been diagnosed with gonorrhea. There contact was about 2 weeks ago when the condom he was wearing broke. Patient has no symptoms at all. No discharge. No pelvic pain. No fevers. Patient also says that for the past several months, she is been having postcoital vaginal swelling which lasts for a couple of hours and then goes away. I suggested that she check the label on the condoms and make sure there are latex free. Having sex causes her to have pain and also urinary incontinence. I advised her that she needs to follow-up with a [facility] doctor about these problems. Patient also says she is having some pressure with urination and thinks she might have a UTI. Patient also says that TRAVEL OUTSIDE OF THE [place] IN LAST 30 DAYS: No - Related Data Allergies/Adverse Reactions: ibuprofen [Ibuprofen] Adverse Reaction (Verified 05/15/19 10:30) GI upset Past Medical History - Social History Smoking Status: Current Some Day Smoker Frequency of alcohol use: None Drug Abuse: Marijuana Family History: Reviewed & Not Pertinent, Arthritis, CAD, CVA, Hyperlipidemia, Hypertension Patient has suicidal ideation: No Patient has homicidal ideation: No Pulmonary Medical History: Reports: Hx Asthma, Hx Bronchitis Denies: Hx Pneumonia Psychiatric Medical History: Reports: Hx Anxiety, Hx Attention Deficit Hyperactivity Disorder, Hx Bipolar Disorder, Hx Depression Past Surgical History: Reports: Hx Tubal Ligation - Immunizations Immunizations up to date: No Hx Diphtheria, Pertussis, Tetanus Vaccination: Yes - unsure Review of Systems - Review of Systems Notes: CONSTITUTIONAL : Denies fever. CARDIOVASCULAR: Denies chest pain. RESPIRATORY: Denies cough, chest congestion, or shortness of breath. GASTROINTESTINAL: Denies abdominal pain or nausea, vomiting, or diarrhea. GENITOURINARY: Denies difficulty or painful urinating, urinary frequency, blood in urine. Physical Exam - Vital signs Vitals: Temp Pulse Resp BP Pulse Ox 98.0 F 75 16 168/76 H 98 05/15/19 10:32 05/15/19 10:32 05/15/19 10:32 05/15/19 10:32 05/15/19 10:32 Interpretation: Normal, Hypertensive - Mildly Notes: PHYSICAL EXAMINATION: GENERAL: Well-appearing, no acute distress. HEAD: Atraumatic, normocephalic. NECK: Normal range of motion, supple. LUNGS: Breath sounds clear and equal bilaterally. HEART: Regular rate and rhythm without murmurs heard. ABDOMEN: Soft, nontender. No guarding or rebound or masses felt. Course - Re-evaluation Re-evalutation: 05/15/19 12:15 Went over patient's history and symptoms with her and she wishes to be treated for her exposure to gonorrhea as well as any other STDs. She will receive Rocephin 500 mg IM, 1 g of Zithromax p.o., and a prescription for 7-day course of metronidazole 500 mg twice a day. - Vital Signs Vital signs: Temp Pulse Resp BP Pulse Ox 98.0 F 75 16 168/76 H 98 05/15/19 10:32 05/15/19 10:32 05/15/19 10:32 05/15/19 10:32 05/15/19 10:32 - Laboratory Laboratory results interpreted by me: 05/15/19 10:45 Urine Ketones TRACE H Ur Leukocyte Esterase MODERATE H Discharge - Discharge Clinical Impression: Exposure to STD Condition: Stable Disposition: HOME, SELF-CARE Additional Instructions: Gonorrhea You have been diagnosed with gonorrhea. In men, this germ infects the urethra (and sometimes the throat). Men usually have drainage from the penis and pain with urination. In women, the germ infects the vagina and fallopian tubes. There may be discharge and pelvic pain. Some women have no symptoms at all. The infection can do permanent damage to the tubes and ovaries. It should be taken very seriously. Treatment is antibiotics. It's important that you receive all recommended medication. Use condoms to prevent spread of the infection. Because this infection is spread sexually, your sexual partner must be checked before resuming sexual relations. If a culture shows gonorrhea germs, it must be reported to the health department. Call the doctor or return at once if you develop increasing fever, rash, joint swelling, severe pelvic pain, vaginal bleeding (other than your period), or problems with your bladder or bowels. Rocephin You have been given an injection of an antibiotic called Rocephin (ceftriaxone). Sometimes the injection must be combined with antibiotic pills. For some infections, such as an uncomplicated ear infection, Rocephin provides all the antibiotic that's needed. The antibiotic will be in your body for about two days. For serious infections, we usually repeat doses of Rocephin daily. Side effects are very unusual following a shot. Women may develop vaginal yeast infections, and babies can get yeast (thrush) in the mouth following the use of antibiotics. Contact your physician if you have symptoms with this medication. Allergy to this antibiotic can result in hives, wheezing, faintness, or itching. If symptoms of allergy occur, call the doctor at once. Azithromycin Azithromycin (Zithromax) is a broad spectrum antibiotic in the same class as erythromycin. It can treat a variety of bacterial infections, but is most frequently used for respiratory infections. Azithromycin is extremely long-lasting. It accumulates in body tissues and continues to kill bacteria for many days. In order to improve absorption, Azithromycin should be taken at least one hour before or two hours after a meal. It does not have the same strong tendency to upset the stomach as erythromycin and is usually very well tolerated. Patients who have had a rash or other true allergic reactions to erythromycin should not take this medication. Call if you develop gastrointestinal distress, severe diarrhea, rash, hives, itching, or shortness of breath. Metronidazole Metronidazole (Flagyl) has been prescribed. This medication is used to kill a type of bacteria called anaerobes, and protozoan parasites such as trichomonas and Giardia. Flagyl often causes a metallic taste in the mouth and mild nausea. Do not use alcohol in any form with Flagyl (including alcohol in medication elixirs). Flagyl interacts with alcohol to cause flushing, palpitations, headache, stomach cramps, and vomiting. Do not use Flagyl if you are taking Antabuse (disulfiram). Call the doctor at once if you develop rash, shortness of breath, itching, or lightheadedness. Prescriptions: Metronidazole [Flagyl 500 mg Tablet] 500 mg PO BID #14 tablet
[2019-05-15 12:42] LABS: CHLAM PCR NOT DETECTED (NOT DETECT)
[2019-05-15 12:45] VITALS: BP 179/93
== END 2019-05-15 12:45 | disposition home or self-care (01) ==
LOC: ER 10:29
DX: Z20.2 Contact with and (suspected) exposure to infections with a predominantly sexual mode of transmission (principal); N94.10 Unspecified dyspareunia; R32 Unspecified urinary incontinence; R39.89 Other symptoms and signs involving the genitourinary system; F17.200 Nicotine dependence, unspecified, uncomplicated; F12.10 Cannabis abuse, uncomplicated; J45.909 Unspecified asthma, uncomplicated
CPT/HCPCS: 99283; 96374; 96375; 87086; 81025; 87088; 81001; 87186; 87491; 87591; Q0144; J0696

== ENCOUNTER 2019-05-22 13:41 | Emergency (ER) | payer SELFPAY ==
[2019-05-22 13:48] VITALS: BP 139/67
--- NOTE | 2019-05-22 14:07 | ER Document Report ---
ED Medical Screen (RME) - General Chief Complaint: Medication Refill Stated Complaint: MEDICATION REFILL Time Seen by Provider: 05/22/19 13:53 TRAVEL OUTSIDE OF THE [place] IN LAST 30 DAYS: No - HPI Notes: 05/22/19 14:05 Patient is a 49-year-old female with a history of mental health disorders and asthma who originally presented for new prescription of Flagyl as hers was taken after her visit a week ago for possible STD exposure. Patient was seen to have a UTI with E. coli being grown, but has not been on any antibiotics. Patient states that she does continue to have urinary frequency. Patient states that she has been having dyspnea on exertion for 2 months for the last episode as she was walking here to the emergency department. Patient states that she made it to the parking lot at the mall and had to stop because she felt like she could not breathe. Patient has also noticed some white vaginal discharge that she has had the last couple weeks. Denies any prolonged immobilization, distance travel, recent surgery/trauma, personal cancer history, hormone use, or previous DVT/PE. Denies CASTELLANO, fever, neck pain, CP, URI, n/v/d, Abd pain, back pain, or rash. I have treated and performed a rapid initial assessment of this patient. A comprehensive ED assessment and evaluation of the patient, analysis of test results and completion of medical decision making process will be conducted by a dditional ED providers. PHYSICAL EXAMINATION: GENERAL: Well-appearing, well-nourished and in no acute distress. A&Ox4. Answers questions appropriately. LUNGS: Breath sounds clear to auscultation bilaterally and equal. No wheezes rales or rhonchi. HEART: Regular rate and rhythm without murmurs, rubs, gallops. Extremities: No cyanosis, clubbing, or edema b/l. Yannick negative bilaterally. No lower extremity asymmetry. NEUROLOGICAL: Normal speech, normal gait. PSYCH: Normal mood, normal affect. - Related Data Allergies/Adverse Reactions: ibuprofen [Ibuprofen] Adverse Reaction (Verified 05/22/19 13:42) GI upset Past Medical History Pulmonary Medical History: Reports: Hx Asthma, Hx Bronchitis Denies: Hx Pneumonia Renal/ Medical History: Denies: Hx Peritoneal Dialysis Psychiatric Medical History: Reports: Hx Anxiety, Hx Attention Deficit Hype ractivity Disorder, Hx Bipolar Disorder, Hx Depression Past Surgical History: Reports: Hx Tubal Ligation - Immunizations Immunizations up to date: No Hx Diphtheria, Pertussis, Tetanus Vaccination: Yes - unsure History of Influenza Vaccine for 08/2017 - 12/2017 Season: No Physical Exam - Vital signs Vitals: Temp Pulse Resp BP Pulse Ox 98.4 F 82 16 139/67 H 97 05/22/19 13:46 05/22/19 13:46 05/22/19 13:46 05/22/19 13:46 05/22/19 13:46 Course - Vital Signs Vital signs: Temp Pulse Resp BP Pulse Ox 98.4 F 82 16 139/67 H 97 05/22/19 13:46 05/22/19 13:46 05/22/19 13:46 05/22/19 13:46 05/22/19 13:46
[2019-05-22 14:39] LABS: ABSOLUTE BASOPHILS # (AUTO) 0.1 10^3/uL (0.0-0.2); ABSOLUTE EOSINOPHILS # (AUTO) 0.7 10^3/uL (0.0-0.6); ABSOLUTE LYMPHOCYTES (AUTO) 2.9 10^3/uL (0.5-4.7); ABSOLUTE MONOCYTES (AUTO) 0.6 10^3/uL (0.1-1.4); ABSOLUTE NEUT (AUTO) 3.3 10^3/uL (1.7-8.2); BASOPHILS % (AUTO) 0.9 % (0-2); EOSINOPHILS % (AUTO) 9.3 % (0-6); HEMATOCRIT 39.5 % (36.0-47.0); HEMOGLOBIN 13.3 g/dL (12.0-15.5); LYMPHOCYTES % (AUTO) 38.1 % (13-45); MEAN CORPUSCULAR HEMOGLOBIN 32.1 pg (27.0-33.4); MEAN CORPUSCULAR HGB CONC 33.8 g/dL (32.0-36.0); MEAN CORPUSCULAR VOLUME 95 fl (80-97); MONOCYTES % (AUTO) 8.5 % (3-13); PLATELET COUNT 204 10^3/uL (150-450); RED BLOOD COUNT 4.16 10^6/uL (3.72-5.28); RED CELL DISTRIBUTION WIDTH 14.5 % (11.5-14.0); SEGMENTED NEUTROPHILS % (AUTO) 43.2 % (42-78); TOTAL CELLS COUNTED % (AUTO) 100 %; WHITE BLOOD COUNT 7.7 10^3/uL (4.0-10.5)
[2019-05-22 14:45] LABS: APPEARANCE,URINE SLIGHTLY-CLOUDY; BILIRUBIN,URINE SMALL (NEGATIVE); COLOR,URINE AMBER; GLUCOSE, URINE NEGATIVE (NEGATIVE); KETONES,URINE TRACE mg/dL (NEGATIVE); LEUKOCYTE ESTERASE,URINE NEGATIVE (NEGATIVE); NITRITE,URINE NEGATIVE (NEGATIVE); PROTEIN,URINE 30 mg/dL (NEGATIVE); URINE SPECIFIC GRAVITY 1.029
[2019-05-22 14:56] LABS: ALANINE AMINOTRANSFERASE 26 U/L (9-52); ALBUMIN 3.3 g/dL (3.5-5.0); ALKALINE PHOSPHATASE 64 U/L (38-126); ASPARTATE AMINO TRANSFERASE 23 U/L (14-36); BILIRUBIN,DIRECT 0.2 mg/dL (0.0-0.4); BILIRUBIN,TOTAL 0.5 mg/dL (0.2-1.3); BLOOD UREA NITROGEN 9 mg/dL (7-20); CALCIUM 9.2 mg/dL (8.4-10.2); CREATINE KINASE 122 U/L (30-135); POTASSIUM 4.7 mmol/L (3.6-5.0); TOTAL PROTEIN 5.7 g/dL (6.3-8.2)
[2019-05-22 15:01] LABS: ANION GAP 3 (5-19); CARBON DIOXIDE 31 mmol/L (22-30); CHLORIDE 106 mmol/L (98-107); SODIUM 140.3 mmol/L (137-145)
[2019-05-22 15:04] LABS: GLUCOSE 68 mg/dL (75-110)
[2019-05-22 15:07] LABS: NT PRO BNP 324 pg/mL (<125)
[2019-05-22 15:10] LABS: TROPONIN I < 0.012 ng/mL
--- NOTE | 2019-05-22 15:47 | RADIOLOGY REPORT (SQ) ---
EXAM DESCRIPTION: CHEST 2 VIEWS COMPLETED DATE/TIME: 05/22/2019 3:37 pm REASON FOR STUDY: AGUIRRE COMPARISON: 06/06/2018 EXAM PARAMETERS: NUMBER OF VIEWS: two views TECHNIQUE: Digital Frontal and Lateral radiographic views of the chest acquired. RADIATION DOSE: NA LIMITATIONS: none FINDINGS: LUNGS AND PLEURA: No opacities, masses or pneumothorax. No pleural effusion. MEDIASTINUM AND HILAR STRUCTURES: No masses or contour abnormalities. HEART AND VASCULAR STRUCTURES: Heart normal size. No evidence for failure. BONES: No acute findings. HARDWARE: None in the chest. OTHER: No other significant finding. IMPRESSION: NO ACUTE RADIOGRAPHIC FINDING IN THE CHEST. TECHNICAL DOCUMENTATION: JOB ID: [id number] [employer]- All Rights Reserved Reading location - IP/workstation name: [email or web address]
--- NOTE | 2019-05-22 21:22 | EKG REPORT ---
SEVERITY:- ABNORMAL ECG - SINUS RHYTHM PROBABLE LEFT ATRIAL ABNORMALITY LEFT VENTRICULAR HYPERTROPHY : Confirmed by: Piyush Dougherty MD 22-May-2019 21:22:18
--- NOTE | 2019-05-22 22:01 | ER Document Report ---
Entered by HARVEY SIMMONS SCRIBE 05/22/19 [id number] Acting as scribe for:JAIR ZELAYA DO ED General - General Chief Complaint: Medication Refill Stated Complaint: MEDICATION REFILL Time Seen by Provider: 05/22/19 13:53 Primary Care Provider: [facility] [Provider Group] - Follow up as needed Mode of Arrival: Ambulatory Information source: Patient Notes: Patient is a 49 year old female, currently homeless, presenting to the emergency department complaining of multiple symptoms. Patient complains of shortness of breath that worsened today while walking in the heat with associated chest pressure and mid to upper back pain. She also complains of being able to intermittently express white and bloody discharge from left nipple onset several months ago. Patient states she was also told there was a lump in her left breast. Patient was recently seen in this ED on 05/15/20 for possible STD exposure and reports she lost the medication that was given to her and also asks for a possible refill. Of note, patient mentions she has not eaten in several days and states she unable to get to the resources available to her. 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 TRAVEL OUTSIDE OF THE [place] IN LAST 30 DAYS: No - Related Data Allergies/Adverse Reactions: ibuprofen [Ibuprofen] Adverse Reaction (Verified 05/22/19 13:42) GI upset Past Medical History - General Information source: Patient - Social History Smoking Status: Current Every Day Smoker Cigarette use (# per day): Yes Chew tobacco use (# tins/day): No Frequency of alcohol use: None Drug Abuse: None Family History: Reviewed & Not Pertinent, Arthritis, CAD, CVA, Hyperlipidemia, Hypertension Patient has suicidal ideation: No Patient has homicidal ideation: No Pulmonary Medical History: Reports: Hx Asthma, Hx Bronchitis Psychiatric Medical History: Reports: Hx Anxiety, Hx Attention Deficit Hyperactivity Disorder, Hx Bipolar Disorder, Hx Depression Past Surgical History: Reports: Hx Tubal Ligation - Immunizations Immunizations up to date: No Hx Diphtheria, Pertussis, Tetanus Vaccination: Yes - unsure Review of Systems - Review of Systems Constitutional: No symptoms reported EENT: No symptoms reported Cardiovascular: See HPI, Chest pain Respiratory: See HPI, Short of breath Gastrointestinal: No symptoms reported Genitourinary: No symptoms reported Female Genitourinary: No symptoms reported Musculoskeletal: See HPI Skin: See HPI - Nipple discharge Hematologic/Lymphatic: See HPI Neurological/Psychological: No symptoms reported -: Yes All other systems reviewed and negative Physical Exam - Vital signs Vitals: Temp Pulse Resp BP Pulse Ox 98.4 F 82 16 139/67 H 97 05/22/19 13:46 05/22/19 13:46 05/22/19 13:46 05/22/19 13:46 05/22/19 13:46 - Notes Notes: GENERAL: Alert, interacts well. No acute distress. HEAD: Normocephalic, atraumatic. EYES: Pupils equal, round, and reactive to light. Extraocular movements intact. ENT: Oral mucosa moist, tongue midline. NECK: Full range of motion. Supple. Trachea midline. LUNGS: Clear to auscultation bilaterally, no wheezes, rales, or rhonchi. No respiratory distress. Able to express a small amount of white discharge from right breast nipple, no discharge from left breast. No mass palpated in breasts bilaterally. HEART: Regular rate and rhythm. No murmurs, gallops, or rubs. ABDOMEN: Soft, non-tender. Non-distended. Bowel sounds present in all 4 quadrants. No guarding, rigidity, or rebound. EXTREMITIES: Moves all 4 extremities spontaneously. NEUROLOGICAL: Alert and oriented x3. Normal speech. PSYCH: Normal affect, normal mood. SKIN: Warm, dry, normal turgor. No rashes or lesions noted. Course - Re-evaluation Re-evalutation: 05/22/19 16:51 CBC unremarkable, CMP shows slight low glucose at 68, patient has not had anything to eat since . States she is homeless and has been banned from the soup kitchen for throwing juice at somebody. proBNP mildly elevated at 324 but this is not significant, troponin negative, urinalysis shows trace ketones, no signs of infection. It appears that her prior E. coli UTI was cured by the Rocephin and Zithromax that was given empirically for exposure to gonorrhea. Gonorrhea and chlamydia swabs of come back negative. Patient is no longer having vaginal discharge. No need to treat her with Flagyl at this time. Chest x-ray shows no acute process and there is no cardiomegaly. No need for further antibiotics at this time. Patient is being given a copy of the street sheet with all the resources including food pantries and soup john in the area. Patient will be fed a full meal here. Patient is additionally concerned by the fact that she has been having some nip ple discharge going on for several months. States that her doctor 6 months to a year ago told her she had a lump in her breast. My examination did not reveal any lump in her left breast however she is aware that she will need to follow-up to have a mammogram performed if somebody has reported to her that she has a lump in her breast. Currently the discharge is not consistent with any infection. There is a minimal amount of thick whitish discharge expressed from the right nipple, none can be expressed from the left nipple. This appears to be physiologic however it does need follow-up. Patient's name has been given to Dae Sim RN, the sharepoint manager for referral to the breast imaging center for assistance in obtaining a mammogram. Patient's shortness of breath and chest pressure completely resolved after resting for 10 minutes. Patient was walking around in some of the hottest weather of the season with a very high heat index. There is no evidence of heat stroke at this time however patient is encouraged to stay inside it places like the mall or the library in order to take advantage of the air conditioning and keep her exertion to a minimum. Patient states that she walks everywhere and has been having this intermittent shortness of breath and chest pressure for we ll over a year. No evidence of MO at this time. I have encouraged the patient to follow-up with her primary care physician/the [facility] as an outpatient for further evaluation and consideration of referral to a hat cutter for stress test if they think it is necessary. - Vital Signs Vital signs: Temp Pulse Resp BP Pulse Ox 98.4 F 82 16 139/67 H 97 05/22/19 13:46 05/22/19 13:46 05/22/19 13:46 05/22/19 13:46 05/22/19 13:46 - Laboratory Result Diagrams: 05/22/19 14:21 05/22/19 14:21 Laboratory results interpreted by me: 05/22/19 05/22/19 05/22/19 14:21 14:21 14:21 RDW 14.5 H Eosinophils % 9.3 H Absolute Eosinophils 0.7 H Carbon Dioxide 31 H Anion Gap 3 L Est GFR (Non-Af Amer) 54 L Glucose 68 L NT-Pro-B Natriuret Pep 324 H Total Protein 5.7 L Albumin 3.3 L Urine Protein Urine Ketones Urine Bilirubin Urine Urobilinogen 05/22/19 14:21 RDW Eosinophils % Absolute Eosinophils Carbon Dioxide Anion Gap Est GFR (Non-Af Amer) Glucose NT-Pro-B Natriuret Pep Total Protein Albumin Urine Protein 30 H Urine Ketones TRACE H Urine Bilirubin SMALL H Urine Urobilinogen 2.0 H - EKG Interpretation by Me Additional EKG results interpreted by me: 05/22/19 16:58 EKG shows sinus rhythm at a rate of 65, normal axis, normal intervals, no ST segment elevations or depressions, there are T wave inversions noted in aVL and V2 per my interpretation. Discharge - Discharge Clinical Impression: Dyspnea on exertion, Discharge from left nipple, Homelessness, Food deprivation, Has difficulty accessing primary care provider for most visits Condition: Stable Disposition: HOME, SELF-CARE Additional Instructions: Please drink plenty of fluids. Please make sure you eat at least one meal a day. We have given you a copy of a resource list that includes food pantries, soup john and homeless shelters all throughout the [facility]. It is incredibly hot out at this time and very humid, it is very important that you stay out of the heat as much as possible and avoid exerting yourself as much as possible during the peak heat of the day. Please consider staying at places like the mall or the library during the day to stay in the air conditioning. I have given you name to 1 of our case manager specialist to help arrange for a mammogram as an outpatient. Please also call the [facility] to arrange follow-up. They do frequently have ways to help you get transportation to the [facility]. Please return to the emergency department if you have a return of your shortness of breath or your chest pressure. Referrals: [facility] [Provider Group] - Follow up as needed I personally performed the services described in the documentation, reviewed and edited the documentation which was dictated to the scribe in my presence, and it accurately records my words and actions.
== END 2019-05-22 17:37 | disposition home or self-care (01) ==
LOC: ER 13:41
DX: R06.09 Other forms of dyspnea (principal); R06.02 Shortness of breath; R07.89 Other chest pain; T73.0XXA Starvation, initial encounter; X58.XXXA Exposure to other specified factors, initial encounter; M54.9 Dorsalgia, unspecified; N64.52 Nipple discharge; Z59.0 Homelessness; F17.210 Nicotine dependence, cigarettes, uncomplicated; J45.909 Unspecified asthma, uncomplicated; Z87.440 Personal history of urinary (tract) infections
CPT/HCPCS: 36415; 71046; 80053; 81001; 81025; 82550; 83880; 84484; 85025; 87086; 93005; 93010; 99283

== ENCOUNTER 2019-06-28 08:09 | Emergency (ER) | payer SELFPAY ==
[2019-06-28] MEDS ORDERED: ONDANSETRON 4 MG TAB.RAPDIS PO ONE (09:00)
--- NOTE | 2019-06-28 09:04 | ER Document Report ---
ED Medical Screen (RME) - General Chief Complaint: Abdominal Pain Stated Complaint: ABDOMINAL PAIN Time Seen by Provider: 06/28/19 08:56 Mode of Arrival: Wheelchair Information source: Patient Notes: This 49-year-old female presents emergency department with generalized abdominal pain increased pain in the epigastric area with palpation. Patient reports her stomach's been upset for the past 4 days. She has vomited twice in the last 4 days felt very nauseated. Reports she had a last normal bowel movement 1 week ago with a small BM this morning after she disimpacted herself. Denies past medical history of chronic abdominal issues such as IBS Crohn's diverticulitis. Denies history of constipation. She complains of rectal irritation.. Denies past medical history. Denies fever. I have greeted and performed a rapid initial assessment of this patient. A comprehensive ED assessment and evaluation of the patient, analysis of test results and completion of the medical decision making process will be conducted by additional ED providers. Dictation of this chart was performed using voice recognition software; therefore, there may be some unintended grammatical errors. TRAVEL OUTSIDE OF THE [place] IN LAST 30 DAYS: No - Related Data Allergies/Adverse Reactions: ibuprofen [Ibuprofen] Adverse Reaction (Verified 06/28/19 08:14) GI upset Past Medical History Pulmonary Medical History: Reports: Hx Asthma, Hx Bronchitis Denies: Hx Pneumonia Renal/ Medical History: Denies: Hx Peritoneal Dialysis Psychiatric Medical History: Reports: Hx Anxiety, Hx Attention Deficit Hyperactivity Disorder, Hx Bipolar Disorder, Hx Depression Past Surgical History: Reports: Hx Tubal Ligation - Immunizations Immunizations up to date: No Hx Diphtheria, Pertussis, Tetanus Vaccination: Yes - unsure History of Influenza Vaccine for 08/2017 - 12/2017 Season: No Physical Exam - Vital signs Vitals: Temp Pulse Resp BP Pulse Ox 97.8 F 72 23 H 182/91 H 100 06/28/19 08:18 06/28/19 08:18 06/28/19 08:18 06/28/19 08:18 06/28/19 08:18 Course - Vital Signs Vital signs: Temp Pulse Resp BP Pulse Ox 97.8 F 72 23 H 182/91 H 100 06/28/19 08:18 06/28/19 08:18 06/28/19 08:18 06/28/19 08:18 06/28/19 08:18
--- NOTE | 2019-06-28 09:34 | RADIOLOGY REPORT (SQ) ---
EXAM DESCRIPTION: KUB/ABDOMEN (SINGLE VIEW) COMPLETED DATE/TIME: 06/28/2019 9:26 am REASON FOR STUDY: abd pain, constipation COMPARISON: None. NUMBER OF VIEWS: One view. TECHNIQUE: Supine radiographic image of the abdomen acquired. LIMITATIONS: None. FINDINGS: BOWEL GAS PATTERN: Normal bowel gas pattern. No dilated loops. Unremarkable fecal burden. CALCIFICATIONS: No suspicious calcifications. Scattered pelvic phleboliths. SOFT TISSUES: No gross mass or suggestion of organomegaly. HARDWARE: None in the abdomen. BONES: No acute fracture dislocation. Mild lower lumbar spondylosis and facet arthropathy. OTHER: No other significant finding. IMPRESSION: No evidence of intestinal obstruction or other acute intra-abdominal/pelvic process. Un remarkable fecal burden. TECHNICAL DOCUMENTATION: JOB ID: [id number] [employer]- All Rights Reserved Reading location - IP/workstation name: [email or web address]
[2019-06-28 09:42] LABS: ABSOLUTE LYMPHOCYTES (AUTO) 2.2 10^3/uL (0.5-4.7); ABSOLUTE MONOCYTES (AUTO) 0.6 10^3/uL (0.1-1.4); ABSOLUTE NEUT (AUTO) 4.1 10^3/uL (1.7-8.2); BASOPHILS % (AUTO) 0.4 % (0-2); EOSINOPHILS % (AUTO) 12.1 % (0-6); HEMATOCRIT 41.3 % (36.0-47.0); LYMPHOCYTES % (AUTO) 27.7 % (13-45); MEAN CORPUSCULAR HEMOGLOBIN 32.4 pg (27.0-33.4); MEAN CORPUSCULAR HGB CONC 33.9 g/dL (32.0-36.0); MEAN CORPUSCULAR VOLUME 96 fl (80-97); MONOCYTES % (AUTO) 7.7 % (3-13); PLATELET COUNT 203 10^3/uL (150-450); RED BLOOD COUNT 4.31 10^6/uL (3.72-5.28); RED CELL DISTRIBUTION WIDTH 14.2 % (11.5-14.0); SEGMENTED NEUTROPHILS % (AUTO) 52.1 % (42-78); TOTAL CELLS COUNTED % (AUTO) 100 %; WHITE BLOOD COUNT 7.9 10^3/uL (4.0-10.5)
[2019-06-28 09:56] LABS: ALBUMIN 3.7 g/dL (3.5-5.0); ALKALINE PHOSPHATASE 66 U/L (38-126); ANION GAP 5 (5-19); ASPARTATE AMINO TRANSFERASE 23 U/L (14-36); BILIRUBIN,DIRECT 0.3 mg/dL (0.0-0.4); BILIRUBIN,TOTAL 0.3 mg/dL (0.2-1.3); BLOOD UREA NITROGEN 11 mg/dL (7-20); CALCIUM 9.5 mg/dL (8.4-10.2); CARBON DIOXIDE 30 mmol/L (22-30); CHLORIDE 104 mmol/L (98-107); GLUCOSE 85 mg/dL (75-110); POTASSIUM 4.1 mmol/L (3.6-5.0); TOTAL PROTEIN 6.4 g/dL (6.3-8.2)
[2019-06-28 10:13] LABS: APPEARANCE,URINE CLEAR; BILIRUBIN,URINE NEGATIVE (NEGATIVE); GLUCOSE, URINE NEGATIVE (NEGATIVE); KETONES,URINE TRACE mg/dL (NEGATIVE); LEUKOCYTE ESTERASE,URINE NEGATIVE (NEGATIVE); NITRITE,URINE NEGATIVE (NEGATIVE); PROTEIN,URINE NEGATIVE (NEGATIVE); URINE SPECIFIC GRAVITY 1.029
[2019-06-28 10:18] LABS: COLOR,URINE YELLOW
--- NOTE | 2019-06-28 12:39 | ER Document Report ---
Entered by SHERIDAN CHAMBERS SCRIBE 06/28/19 1132 Acting as scribe for:DEQUAN TALLEY MD ED GI/ - General Chief Complaint: Abdominal Pain Stated Complaint: ABDOMINAL PAIN Time Seen by Provider: 06/28/19 08:56 Mode of Arrival: Wheelchair Information source: Patient Notes: 41-year-old female patient with underlying psychiatric disorders including bipolar disorder, ADHD, anxiety and depression. She comes emergency room today complaining of lower abdominal pain with nauseousness. At triage she was given a dose of Zofran ODT. She reports that the pain has completely resolved and she feels much better at this time. TRAVEL OUTSIDE OF THE [place] IN LAST 30 DAYS: No - Related Data Allergies/Adverse Reactions: ibuprofen [Ibuprofen] Adverse Reaction (Verified 06/28/19 08:14) GI upset Past Medical History - General Information source: Patient - Social History Smoking Status: Current Some Day Smoker Chew tobacco use (# tins/day): No Frequency of alcohol use: None Drug Abuse: None Family History: Reviewed & Not Pertinent, Arthritis, CAD, CVA, Hyperlipidemia, Hypertension Patient has suicidal ideation: No Patient has homicidal ideation: No Pulmonary Medical History: Reports: Hx Asthma, Hx Bronchitis Denies: Hx Pneumonia Renal/ Medical History: Denies: Hx Peritoneal Dialysis Psychiatric Medical History: Reports: Hx Anxiety, Hx Attention Deficit Hyperactivity Disorder, Hx Bipolar Disorder, Hx Depression Past Surgical History: Reports: Hx Tubal Ligation - Immunizations Immunizations up to date: No Hx Diphtheria, Pertussis, Tetanus Vaccination: Yes - unsure Review of Systems - Review of Systems Constitutional: No symptoms reported EENT: No symptoms reported Cardiovascular: No symptoms reported Respiratory: No symptoms reported Gastrointestinal: See HPI, Abdominal pain, Nausea Genitourinary: No symptoms reported Female Genitourinary: No symptoms reported Musculoskeletal: No symptoms reported Skin: No symptoms reported Hematologic/Lymphatic: No symptoms reported Neurological/Psychological: No symptoms reported -: Yes All other systems reviewed and negative Physical Exam - Vital signs Vitals: Temp Pulse BP 97.8 F 80 182/91 H 06/28/19 08:17 06/28/19 08:17 06/28/19 08:17 - Notes Notes: PHYSICAL EXAMINATION: GENERAL: Well-appearing, well-nourished and in no acute distress. HEAD: Atraumatic, normocephalic. EYES: Pupils equal round and reactive to light, extraocular movements intact, sclera anicteric, conjunctiva are normal. ENT: nares patent, oropharynx clear without exudates. Moist mucous membranes. NECK: Normal range of motion, supple without lymphadenopathy LUNGS: Breath sounds clear to auscultation bilaterally and equal. No wheezes rales or rhonchi. HEART: Regular rate and rhythm without murmurs ABDOMEN: Soft, nontender, normoactive bowel sounds. No guarding, no rebound. No masses appreciated. EXTREMITIES: Normal range of motion, no pitting or edema. No cyanosis. NEUROLOGICAL: Cranial nerves grossly intact. Normal speech, normal gait. Normal sensory, motor, and reflex exams. PSYCH: Normal mood, normal affect. SKIN: Warm, Dry, normal turgor, no rashes or lesions noted. Course - Re-evaluation Re-evalutation: 06/28/19 12:55 Patient's lab work and x-rays are unremarkable. She did respond quite well to the Zofran, we will discharge her with a dispense pack of Zofran, and she can fo llow-up with her primary care provider. - Vital Signs Vital signs: Temp Pulse Resp BP Pulse Ox 98 F 66 18 173/90 H 97 06/28/19 13:04 06/28/19 13:04 06/28/19 13:04 06/28/19 13:04 06/28/19 13:04 - Laboratory Result Diagrams: 06/28/19 09:10 06/28/19 09:10 Laboratory results interpreted by me: 06/28/19 06/28/19 09:10 10:00 RDW 14.2 H Eos % (Auto) 12.1 H Absolute Eos (auto) 1.0 H Urine Ketones TRACE H Urine Urobilinogen 4.0 H Urine Ascorbic Acid 40 H - Diagnostic Test Radiology reviewed: Image reviewed, Reports reviewed - KUB is unremarkable Discharge - Discharge Clinical Impression: Lower abdominal pain High blood pressure Qualifiers: Hypertension type: essential hypertension Qualified Code(s): I10 - Essential (primary) hypertension Condition: Stable Disposition: HOME, SELF-CARE Additional Instructions: Abdominal Pain There are many causes of abdominal pain. Pain can mean a serious problem requiring surgery (such as appendicitis). It can also be an innocent problem that goes away on its own (such as a viral infection). Often, time must pass to determine the cause of pain. The physician does not feel that hospitalization is necessary, at present. Things may change within the next 24 hours. Call the doctor or come back for re- examination if any problems occur, such as: (1) Pain that becomes more severe, steady, or becomes concentrated in one specific area. Also, pain that is more severe with movement or coughing. (2) Vomiting that persists or becomes more frequent. (3) Blood in the vomitus, urine, or bowel movements. Blood in the stool may have a tarry or black appearance. (4) Shaking chills or fever greater than 100 degrees F. (5) The abdomen becomes more distended or swollen. (6) Bowel movements cease. (7) Failure to improve as expected. High Blood Pressure: When your blood pressure was taken today it was elevated. Pre-hypertension/Hypertension: The patient has been informed that they may have pre-hypertension or Hypertension based on a blood pressure reading in the emergency department. I recommend that the patient call the primary care provider listed on their discharge instructions or a physician of their choice this wee to arrange follow up for further evaluation of possible pre- hypertension or Hypertension. Sometimes, stress or illness causes a temporary elevation of your blood pressure. We suggest that you get your blood pressure measured three more times during the next few days to see if this is more than a temporary abnormality. If your blood pressure is greater than 150/90 on each occasion, you must have treatment. Some simple things you can do to help are: If you have blood pressure medicine but aren't using it regularly, start taking it again. Get some aerobic exercise for at least 20 minutes on a daily basis. (See your doctor before begi nning a new exercise program.) Eat a low-fat diet. Lose excess weight. Avoid salty foods and avoid adding salt to any of the foods you eat. Avoid diet pills, decongestants, "energizing" herbs, and other medicines that elevate blood pressure. If left untreated, hypertension greatly enhances your risk for developing heart disease and strokes. Please don't ignore this problem. No explanation for your abdominal pain was found during your evaluation today. You did respond quite nicely to the Zofran. We will send you home with a dispense pack of Zofran to take for abdominal pain if needed. You should follow-up with a local primary care provider if you do not continue to improve. Your blood pressure was quite high today. It has occasionally been high on previous emergency room visits. You should check your blood pressure every day and record the number. You should follow-up with your primary care provider to manage her blood pressure if it continues to remain elevated. RETURN TO THE EMERGENCY ROOM IF ANY NEW OR WORSENING SYMPTOMS. Priyankibe Attestation: 06/28/19 11:37 I personally performed the services described in the documentation, reviewed and edited the documentation which was dictated to the scribe in my presence, and it accurately records my words and actions. I personally performed the services described in the documentation, reviewed and edited the documentation which was dictated to the scribe in my presence, and it accurately records my words and actions.
[2019-06-28] MEDS ORDERED: ONDANSETRON ODT 4 MG TAB (6 TAB/ER DISP) PO PRN (12:58)
[2019-06-28 13:06] VITALS: BP 173/90
== END 2019-06-28 13:20 | disposition home or self-care (01) ==
LOC: ER 08:09
DX: R10.30 Lower abdominal pain, unspecified (principal); I10 Essential (primary) hypertension; R11.0 Nausea; F17.200 Nicotine dependence, unspecified, uncomplicated; J45.909 Unspecified asthma, uncomplicated
CPT/HCPCS: 99284; 36415; 83690; 85025; 81025; 80053; 81001; 74018; S0119

== ENCOUNTER 2019-12-22 02:17 | Emergency (ER) | payer SELFPAY ==
[2019-12-22] MEDS ORDERED: ACETAMINOPHEN 325 MG TABLET PO ONE (02:38)
[2019-12-22 03:21] LABS: A TYPE INFLUENZA AG NEGATIVE (NEGATIVE); B INFLUENZA AG NEGATIVE (NEGATIVE)
--- NOTE | 2019-12-22 05:46 | RADIOLOGY REPORT (SQ) ---
EXAM DESCRIPTION: XR CHEST 2 VIEWS COMPLETED DATE/TME: 12/22/2019 00:00 CLINICAL HISTORY: sob COMPARISON: 05/22/2019 FINDINGS: Frontal and lateral views of the chest. Cardiomediastinal silhouette: Normal size and contour. Lungs: No consolidation, pneumothorax, or pleural effusion. Bones: No acute osseous abnormality. Upper abdomen: No abnormality identified. IMPRESSION: 1. No acute pulmonary process identified.
[2019-12-22] MEDS ORDERED: IBUPROFEN 600 MG TABLET PO ONE (05:57)
--- NOTE | 2019-12-22 06:02 | ER Document Report ---
ED General - General Chief Complaint: Flu Symptoms Stated Complaint: FLU LIKE SYMPTOMS Time Seen by Provider: 12/22/19 05:56 Notes: 41-year female presents with generalized malaise fevers and cough. History of bronchitis. No worsening sputum or shortness of breath. Positive smoking. Homeless. Seen here earlier, triage afebrile. Room during downtime of [facility] medical record but vital signs appear normal at this point other than a fever which is now better after Tylenol. No belly pain nausea vomiting diarrhea. TRAVEL OUTSIDE OF THE [place] IN LAST 30 DAYS: No - Related Data Allergies/Adverse Reactions: ibuprofen [Ibuprofen] Adverse Reaction (Verified 06/28/19 08:14) GI upset Past Medical History - Social History Smoking Status: Current Every Day Smoker Smoking Education Provided: Yes - The patient ED visit today was directly related to their abuse of tobacco. Family History: Reviewed & Not Pertinent, Arthritis, CAD, CVA, Hyperlipidemia, Hypertension Patient has suicidal ideation: No Patient has homicidal ideation: No Pulmonary Medical History: Reports: Hx Asthma, Hx Bronchitis Denies: Hx Pneumonia Renal/ Medical History: Denies: Hx Peritoneal Dialysis Psychiatric Medical History: Reports: Hx Anxiety, Hx Attention Deficit Hyperactivity Disorder, Hx Bipolar Disorder, Hx Depression Past Surgical History: Reports: Hx Tubal Ligation - Immunizations Immunizations up to date: No Hx Diphtheria, Pertussis, Tetanus Vaccination: Yes - unsure Review of Systems - Review of Systems Notes: REVIEW OF SYSTEMS GEN: Denies fever, chills, weight loss ENT: Denies sore throat, nasal discharge, ear pain EYES: Denies blurry vision, eye pain, discharge CV: Denies chest pain, palpitations, edema RESP: Denies cough, shortness of breath, wheezing GI: Denies abdominal pain, nausea, vomiting, diarrhea MSK: Denies joint pain/swelling, edema, SKIN: Denies rash, skin lesions LYMPH: Denies swollen glands/lymph nodes NEURO: Denies headache, focal weakness or numbness, dizziness PSYCH: Denies depression, suicidal or homicidal ideation PHYSICAL EXAMINATION General: No acute distress, well-nourished Head: Atraumatic, normocephalic ENT: Mouth normal, oropharynx moist, no exudates or tonsillar enlargement Eyes: Conjunctiva normal, pupils equal, lids normal Neck: No JVD, supple, no guarding CVS: Normal rate, regular rhythm, no murmurs Resp: No resp distress, equal and normal breath sounds bilaterally GI: Nondistended, soft, no tenderness to palpation, no rebound or guarding Ext: No deformities, no edema, normal range of motion in upper and lower ext Back: No CVA or midline TTP Skin: No rash, warm Lymphatic: No lymphadeopathy noted Neuro: Awake, alert. Face symmetric. GCS 15. Physical Exam - Vital signs Vitals: Temp Pulse Resp BP Pulse Ox 101.4 F H 107 H 20 154/85 H 97 12/22/19 02:23 12/22/19 02:23 12/22/19 02:23 12/22/19 02:23 12/22/19 02:23 Course - Re-evaluation Re-evalutation: 12/22/19 06:58 Viral syndrome with resolved fever no focal symptoms other than a chronic cough which is unchanged with prior, history of cigarettes. Counseled on tobacco cessation. Lungs are clear saturation normal doubt flu chest x-ray necessary. Symptoms been going on for long enough that Tamiflu is actually contraindicated at this time. The patient was given symptomatic relief and discharged home in stable condition. I have discussed with the patient there likely diagnosis, aftercare plan, follow-up plans and my usual and customary return precautions. They verbalized understanding of this. - Vital Signs Vital signs: Temp Pulse Resp BP Pulse Ox 98.7 F 88 18 142/78 H 100 12/22/19 06:16 12/22/19 06:16 12/22/19 06:16 12/22/19 06:16 12/22/19 06:16 Discharge - Discharge Clinical Impression: Acute viral syndrome Condition: Good Disposition: HOME, SELF-CARE Instructions: Viral Syndrome ([facility])
[2019-12-22 06:19] VITALS: BP 142/78
== END 2019-12-22 06:16 | disposition home or self-care (01) ==
LOC: ER 02:17
DX: B34.9 Viral infection, unspecified (principal); R53.81 Other malaise; F17.210 Nicotine dependence, cigarettes, uncomplicated; R50.9 Fever, unspecified; R05 Cough; Z59.0 Homelessness; Z98.51 Tubal ligation status; Z88.6 Allergy status to analgesic agent
CPT/HCPCS: 71046; 87804

== ENCOUNTER 2020-01-07 15:43 | Emergency (ER) | payer SELFPAY ==
[2020-01-07] MEDS ORDERED: IPRATROPIUM/ALBUTEROL 0.5-2.5 MG/3 ML AMPUL NEB ONE (15:59)
--- NOTE | 2020-01-07 16:01 | ER Document Report ---
ED Medical Screen (RME) - General Stated Complaint: CHEST PAIN/CONGESTION Time Seen by Provider: 01/07/20 15:58 Notes: HPI: 49-year-old female who smokes presenting to the emergency department complaining of a dull pressure-like sensation in the lower sternal region that woke her from sleep around 2 AM and has been persistent since then. Patient also reports an intermittent fluttering sensation in the chest states she has had the fluttering sensation before but is never had it evaluated by a authorizer. Patient reports upper respiratory symptoms for approximately a month states she was here 2 weeks ago treated for a viral illness. Continues to have cough and shortness of breath with this. I have greeted and performed a rapid initial assessment of this patient. A comprehensive ED assessment and evaluation of the patient, analysis of test results and completion of the medical decision making process will be conducted by additional ED providers PHYSICAL EXAMINATION: GENERAL: Well-appearing, well-nourished and in mild acute distress. HEAD: Atraumatic, normocephalic. EYES: sclera anicteric, conjunctiva are normal. ENT: Moist mucous membranes. NECK: Normal range of motion LUNGS: Normal work of breathing. Congested cough noted, lung sounds with very faint expiratory wheeze posterior HEART: 2+ radial pulses bilaterally, regular rate and rhythm ABD: limited by positioning for exam in triage. EXTREMITIES: no pitting or edema. No cyanosis. NEUROLOGICAL: No focal neurological deficits. Moves all extremities spontaneously and on command. PSYCH: Normal mood, normal affect. SKIN: Warm, Dry, normal turgor, no rashes or lesions noted. TRAVEL OUTSIDE OF THE [place] IN LAST 30 DAYS: No - Related Data Allergies/Adverse Reactions: ibuprofen [Ibuprofen] Adverse Reaction (Verified 06/28/19 08:14) GI upset Past Medical History Pulmonary Medical History: Reports: Hx Asthma, Hx Bronchitis Denies: Hx Pneumonia Renal/ Medical History: Denies: Hx Peritoneal Dialysis Psychiatric Medical History: Reports: Hx Anxiety, Hx Attention Deficit Hyperactivity Disorder, Hx Bipolar Disorder, Hx Depression Past Surgical History: Reports: Hx Tubal Ligation - Immunizations Immunizations up to date: No Hx Diphtheria, Pertussis, Tetanus Vaccination: Yes - unsure Physical Exam - Vital signs Vitals: Temp Pulse Resp BP Pulse Ox 98.1 F 87 20 166/90 H 100 01/07/20 15:54 01/07/20 15:54 01/07/20 15:54 01/07/20 15:54 01/07/20 15:54 Course - Vital Signs Vital signs: Temp Pulse Resp BP Pulse Ox 98.1 F 87 20 166/90 H 100 01/07/20 15:54 01/07/20 15:54 01/07/20 15:54 01/07/20 15:54 01/07/20 15:54
[2020-01-07 16:38] LABS: ABSOLUTE EOSINOPHILS # (AUTO) 0.3 10^3/uL (0.0-0.6); ABSOLUTE LYMPHOCYTES (AUTO) 2.9 10^3/uL (0.5-4.7); ABSOLUTE MONOCYTES (AUTO) 0.8 10^3/uL (0.1-1.4); ABSOLUTE NEUT (AUTO) 4.8 10^3/uL (1.7-8.2); BASOPHILS % (AUTO) 0.5 % (0-2); EOSINOPHILS % (AUTO) 3.5 % (0-6); LYMPHOCYTES % (AUTO) 33.1 % (13-45); MEAN CORPUSCULAR HEMOGLOBIN 33.1 pg (27.0-33.4); MEAN CORPUSCULAR VOLUME 95 fl (80-97); MONOCYTES % (AUTO) 8.9 % (3-13); PLATELET COUNT 288 10^3/uL (150-450); RED BLOOD COUNT 4.22 10^6/uL (3.72-5.28); RED CELL DISTRIBUTION WIDTH 14.7 % (11.5-14.0); TOTAL CELLS COUNTED % (AUTO) 100 %; WHITE BLOOD COUNT 8.9 10^3/uL (4.0-10.5)
--- NOTE | 2020-01-07 16:39 | RADIOLOGY REPORT (SQ) ---
EXAM DESCRIPTION: CHEST 2 VIEWS COMPLETED DATE/TIME: 01/07/2020 3:20 pm REASON FOR STUDY: cough COMPARISON: 12/22/2019 EXAM PARAMETERS: NUMBER OF VIEWS: two views TECHNIQUE: Digital Frontal and Lateral radiographic views of the chest acquired. RADIATION DOSE: NA LIMITATIONS: none FINDINGS: LUNGS AND PLEURA: No opacities, masses or pneumothorax. No pleural effusion. MEDIASTINUM AND HILAR STRUCTURES: No masses or contour abnormalities. HEART AND VASCULAR STRUCTURES: Heart normal size. No evidence for failure. BONES: No acute findings. HARDWARE: None in the chest. OTHER: No other significant finding. IMPRESSION: NO ACUTE RADIOGRAPHIC FINDING IN THE CHEST. TECHNICAL DOCUMENTATION: JOB ID: [id number] 2010 [employer]- All Rights Reserved Reading location - IP/workstation name: [email or web address]
[2020-01-07 16:48] LABS: ALBUMIN 3.4 g/dL (3.5-5.0); ALKALINE PHOSPHATASE 76 U/L (38-126); ASPARTATE AMINO TRANSFERASE 28 U/L (14-36); BILIRUBIN,TOTAL 0.3 mg/dL (0.2-1.3); BLOOD UREA NITROGEN 10 mg/dL (7-20); CALCIUM 9.1 mg/dL (8.4-10.2); GLUCOSE 75 mg/dL (75-110); POTASSIUM 4.8 mmol/L (3.6-5.0); TOTAL PROTEIN 6.3 g/dL (6.3-8.2)
[2020-01-07 16:54] LABS: CARBON DIOXIDE 33 mmol/L (22-30); CHLORIDE 105 mmol/L (98-107)
[2020-01-07 17:00] LABS: ANION GAP 3 (5-19)
[2020-01-07] MEDS ORDERED: ASPIRIN 81 MG TABLET, CHEWABLE PO ONE (17:22)
--- NOTE | 2020-01-07 18:04 | ER Document Report ---
ED General - General Chief Complaint: Chest Pain Stated Complaint: CHEST PAIN/CONGESTION Time Seen by Provider: 01/07/20 15:58 TRAVEL OUTSIDE OF THE [place] IN LAST 30 DAYS: No - HPI Notes: 49 yo female with no prior hx. CAD presents with gradual onset bilateral anterior chest pressure last PM. Radiates to both UE. Patient took a BC powder at home and said this perhaps improve the pain slightly. She notes that the maximal intensity of pain was 8/10 last night. She currently describes this as 3/10 with no change in the character. Mild nausea w/o vomiting. Patient says she has been coughing for several days and bringing up small amount of white sputum. Had fever several days ago but none today. No hemoptysis. Patient smokes less than 5 cigarettes/day. Denies abuse of alcohol. History of bipolar disorder and currently noncompliant with her behavioral medications. She denies currently taking any prescription medication. Patient says she smokes cannabis occasionally. She denies any use of cocaine although she has used this in past years. Family history is positive for CAD. Patient is not diabetic. She has a history of hypertension but is not currently on treatment for this. Lipid status is unknown. She denies any history of thromboembolic disease. Perimenopausal. HEART Score: HISTORY 2 ECG 1 AGE 2 RISK FACTORS 3 TROPONIN 1 TOTAL: 9 If HEART score is = 3 AND both tronponin measurments are normal, the 30 day risk of a major adverse cardiac event (all-cause mortality, myocardia infarction or need for coronary revscularization) is < 1% (Sensitivity 100%, NPV 100%). - Related Data Allergies/Adverse Reactions: ibuprofen [Ibuprofen] Adverse Reaction (Verified 01/07/20 16:00) GI upset Past Medical History - General Information source: Patient, REPLACED BY [facility] Records - Social History Smoking Status: Current Every Day Smoker Chew tobacco use (# tins/day): No Frequency of alcohol use: None Drug Abuse: None Family History: Reviewed & Not Pertinent, Arthritis, CAD, CVA, Hyperlipidemia, Hypertension Patient has suicidal ideation: No Patient has homicidal ideation: No - Past Medical History Cardiac Medical History: Reports: None Pulmonary Medical History: Reports: Hx Asthma, Hx Bronchitis Denies: Hx Pneumonia Endocrine Medical History: Reports: None Renal/ Medical History: Denies: Hx Peritoneal Dialysis Psychiatric Medical History: Reports: Hx Anxiety, Hx Attention Deficit Hyperactivity Disorder, Hx Bipolar Disorder, Hx Depression Past Surgical History: Reports: Hx Tubal Ligation - Immunizations Immunizations up to date: No Hx Diphtheria, Pertussis, Tetanus Vaccination: Yes - unsure Review of Systems - Review of Systems Notes: Constitutional: As per HPI. HENT: Negative for sore throat. Eyes: Negative for visual changes. Cardiovascular: As per HPI. Respiratory: As per HPI. Gastrointestinal: Negative for abdominal pain, vomiting or diarrhea. Genitourinary: Negative for dysuria. Musculoskeletal: Negative for back pain. Skin: Negative for rash. Neurological: Negative for headaches, weakness or numbness. 10 point ROS negative except as marked above and in HPI. Physical Exam - Vital signs Vitals: Temp Pulse Resp BP Pulse Ox 98.1 F 87 20 166/90 H 100 01/07/20 15:54 01/07/20 15:54 01/07/20 15:54 01/07/20 15:54 01/07/20 15:54 - Notes Notes: GENERAL: Slender female approximately stated age who appears mildly un comfortable. SKIN: Good turgor no rashes. HEAD: Normocephalic atraumatic. EYES: PERRLA. EOMI. Conjunctivae and sclerae clear. EARS: CANALS AND TMS CLEAR. NOSE: CLEAR. MOUTH: Moist mucosa. Good dentition. No stridor or edema. No drooling. NECK: Supple. No masses or thyromegaly. No adenopathy. Carotids 2+ without bruits. No JVD. BACK: Symmetrical without tenderness. CHEST: Respirations unlabored. Few scattered rhonchi bilaterally which clear with cough. HEART: Regular rhythm. No murmur gallop or rub. ABDOMEN: Soft nontender without masses, organomegaly or rebound. Bowel sounds normally active. No bruits. GENITALIA: Deferred. EXTREMITIES: No edema. No calf tenderness. Cap refill less than 1.5 seconds. Dorsalis pedis and posterior tibial pulses 3+ and symmetrical. NEUROLOGICAL: GCS 15. Alert and oriented x3. Fluent speech. Cranial nerves II through XII intact. Sensorimotor and cerebellar normal. Normal tone. PSYCHIATRIC: Appropriate affect. Course - Re-evaluation Re-evalutation: 01/07/20 18:25 This lady has an elevated heart score, nonspecific EKG and pattern pain highly suggestive of ischemia. Her troponin is mildly elevated. She is having some ongoing discomfort 3/10 intensity. I repeated a second EKG and this does not show any substantial ST elevations or depressions at this time. Overall picture is consistent with a non-STEMI. Patient is been placed on monitor and we are administering multiple medications including aspirin, Plavix, subcu Lovenox and Nitropaste. She is also going to get a dose of fentanyl to resolve her pain hopefully. I have spoken with cardiac connection at [facility] and she has been accepted for transfer by Dr. Mendoza only to [facility] and bed the may be made he does need Chronic alcoholism is a serum his his total body stores of serum please 2 g of mag alendronate to that that that worked Sarah Beth and Dr. Henry. - Vital Signs Vital signs: Temp Pulse Resp BP Pulse Ox 98.1 F 87 13 163/84 H 99 01/07/20 15:54 01/07/20 15:54 01/07/20 16:29 01/07/20 16:29 01/07/20 16:37 - Laboratory Result Diagrams: 01/07/20 16:10 01/07/20 16:10 Laboratory results interpreted by me: 01/07/20 01/07/20 16:10 16:10 RDW 14.7 H Carbon Dioxide 33 H Anion Gap 3 L Albumin 3.4 L - EKG Interpretation by Me Additional EKG results interpreted by me: 01/07/20 18:28 Initial EKG showed nonspecific T wave changes in mid precordial leads compared to her baseline tracing. No ST elevations. Normal sinus rhythm. Second EKG at this time again shows no acute ST shift. Critical Care Note - Critical Care Note Total time excluding time spent on procedures (mins): 35 - Acute non-STEMI Discharge - Discharge Clinical Impression: Acute non-STEMI Condition: Good Disposition: [facility]
[2020-01-07] MEDS ORDERED: CLOPIDOGREL BISULFATE 300 MG TABLET PO ONE (18:05)
[2020-01-07] MEDS ORDERED: NITROGLYCERIN 2% OINTMENT 1 GM PACKET TP ONE (18:05)
[2020-01-07] MEDS ORDERED: ONDANSETRON HCL INJ/PF 4 MG/2 ML SDV IV ONE (18:06)
[2020-01-07] MEDS ORDERED: FENTANYL CITRATE INJ/PF 100 MCG/2 ML AMPUL IV ONE (18:08)
[2020-01-07] MEDS ORDERED: ENOXAPARIN SODIUM INJ 60 MG/0.6 ML DISP.SYRIN SUBCUT ONE (18:08)
[2020-01-07 19:32] LABS: URINE AMPHETAMINES SCREEN NEGATIVE; URINE BARBITURATES SCREEN NEGATIVE; URINE BENZODIAZEPINES SCREEN NEGATIVE; URINE METHADONE SCREEN NEGATIVE; URINE PHENCYCLIDINE SCREEN NEGATIVE
[2020-01-07 19:33] LABS: URINE COCAINE SCREEN UNCONFIRMED POSITIVE; URINE MARIJUANA (THC) SCREEN UNCONFIRMED POSITIVE
[2020-01-07 19:35] VITALS: BP 167/91
--- NOTE | 2020-01-07 19:55 | EKG REPORT ---
SEVERITY:- ABNORMAL ECG - SINUS RHYTHM LEFT VENTRICULAR HYPERTROPHY : Confirmed by: Piyush Dougherty MD 07-Jan-2020 19:53:38
--- NOTE | 2020-01-07 19:55 | EKG REPORT ---
SEVERITY:- ABNORMAL ECG - SINUS RHYTHM PROBABLE LEFT ATRIAL ABNORMALITY PROBABLE LEFT VENTRICULAR HYPERTROPHY : Confirmed by: Piyush Dougherty MD 07-Jan-2020 19:53:51
== END 2020-01-07 19:55 | disposition short-term general hospital (02) ==
LOC: ER 15:43
DX: I21.4 Non-ST elevation (NSTEMI) myocardial infarction (principal); R07.89 Other chest pain; R11.0 Nausea; R05 Cough; F31.9 Bipolar disorder, unspecified; T50.906A Underdosing of unspecified drugs, medicaments and biological substances, initial encounter; Z91.14 Patient's other noncompliance with medication regimen; J45.909 Unspecified asthma, uncomplicated; F17.200 Nicotine dependence, unspecified, uncomplicated; Z82.49 Family history of ischemic heart disease and other diseases of the circulatory system
CPT/HCPCS: 93005; 94640; 99291; 96372; 96374; 96375; 36415; 84443; 85025; 80053; 84484; 80307; 71046; 93010; J3490; J3010; J2405; J1650; J7620

== ENCOUNTER 2020-04-27 13:22 | Emergency (ER) | payer SELFPAY ==
[2020-04-27 14:40] VITALS: BP 150/77
== END 2020-04-27 15:58 | disposition left against medical advice (07) ==
LOC: ER 13:22
DX: Z53.21 Procedure and treatment not carried out due to patient leaving prior to being seen by health care provider (principal)

== ENCOUNTER 2020-04-28 13:11 | Emergency (ER) | payer SELFPAY ==
[2020-04-28] MEDS ORDERED: METHOCARBAMOL 500 MG TABLET PO ONE (14:01)
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
[2020-04-28 15:52] VITALS: BP 185/102
== END 2020-04-28 15:43 | disposition home or self-care (01) ==
LOC: ER 13:11
DX: M54.2 Cervicalgia (principal); Y08.89XA Assault by other specified means, initial encounter; M47.812 Spondylosis without myelopathy or radiculopathy, cervical region; R51 Headache; I25.2 Old myocardial infarction; F17.200 Nicotine dependence, unspecified, uncomplicated; J45.909 Unspecified asthma, uncomplicated
CPT/HCPCS: 70450; 72125; 99283

== ENCOUNTER 2020-08-07 10:23 | Emergency (ER) | payer SELFPAY ==
--- NOTE | 2020-08-07 12:13 | ER Document Report ---
ED Medical Screen (RME) - General Stated Complaint: TREMORS Time Seen by Provider: 08/07/20 12:02 TRAVEL OUTSIDE OF THE U.S. IN LAST 30 DAYS: No - HPI Notes: 08/07/20 12:08 50-year-old female with a history of hypertension,CAD, hyperlipidemia presents to the emergency room for complaints of a sore throat, cough, insomnia for the last 3 nights with chest tightness that started yesterday. Patient states this morning that she took a breathing treatment of her [id number] because she had trouble breathing, the medication caused her to have some tremors and some chest tightness so she called EMS. This tightness has been constant since yesterday afternoon. Denies chest pain, reports chest tightness without radiation. Patient states she is unsure if she has been on any COVID positive patients. denies any nausea vomiting or abdominal pain. Patient denies having history of asthma or COPD. Denies any fevers or chills. She does report some sinus drainage as well. I have greeted and performed a rapid initial assessment of this patient. A comprehensive ED assessment and evaluation of the patient, analysis of test results and completion of the medical decision making process will be conducted by additional ED providers. PHYSICAL EXAMINATION: GENERAL: Well-appearing, well-nourished and in no acute distress. HEAD: Atraumatic, normocephalic. EYES: Pupils equal round extraocular movements intact, conjunctiva are normal. NECK: Normal range of motion CV: s1, s2 regular. Unable to reproduce chest pain on palpation LUNGS: diminished BS in upper lobes - Related Data Allergies/Adverse Reactions: ibuprofen [Ibuprofen] Adverse Reaction (Verified 08/07/20 12:00) GI upset Past Medical History Pulmonary Medical History: Reports: Hx Asthma, Hx Bronchitis Denies: Hx Pneumonia Renal/ Medical History: Denies: Hx Peritoneal Dialysis Psychiatric Medical History: Reports: Hx Anxiety, Hx Attention Deficit Hyperactivity Disorder, Hx Bipolar Disorder, Hx Depression Past Surgical History: Reports: Hx Tubal Ligation - Immunizations Immunizations up to date: No Hx Diphtheria, Pertussis, Tetanus Vaccination: Yes - unsure Physical Exam - Vital signs Vitals: Temp Pulse Resp BP Pulse Ox 98.3 F 86 16 151/80 H 99 08/07/20 10:36 08/07/20 10:36 08/07/20 10:36 08/07/20 10:36 08/07/20 10:36 Course - Vital Signs Vital signs: Temp Pulse Resp BP Pulse Ox 98.3 F 86 16 151/80 H 99 08/07/20 10:36 08/07/20 10:36 08/07/20 10:36 08/07/20 10:36 08/07/20 10:36
[2020-08-07] MEDS ORDERED: IPRATROPIUM/ALBUTEROL 0.5-2.5 MG/3 ML AMPUL NEB ONE (14:33)
[2020-08-07] MEDS ORDERED: PREDNISONE 20 MG TABLET PO ONE (14:33)
--- NOTE | 2020-08-07 14:38 | ER Document Report ---
ED General - General Chief Complaint: Cough Stated Complaint: TREMORS Time Seen by Provider: 08/07/20 12:02 Mode of Arrival: Ambulatory Information source: Patient Notes: Patient is a 50-year-old -Japanese female presenting for chest tightness, cough, wheezing. Symptoms present for the past 3 days and progressively worse as time goes by. She reports that about twice a year she gets a "sinus infection" that drains down into her lungs and then she starts to get an infection in her lungs. She does not have an history of asthma or COPD. She is a non-smoker. She is not having fevers. She is not having any myalgias. TRAVEL OUTSIDE OF THE [place] IN LAST 30 DAYS: No - Related Data Allergies/Adverse Reactions: ibuprofen [Ibuprofen] Adverse Reaction (Verified 08/07/20 12:00) GI upset Home Medications: aspirin. clopedigrol,amlodipine, atorvastatin Past Medical History - Social History Smoking Status: Current Some Day Smoker Chew tobacco use (# tins/day): No Frequency of alcohol use: None Drug Abuse: None Family History: Reviewed & Not Pertinent, Arthritis, CAD, CVA, Hyperlipidemia, Hypertension Patient has homicidal ideation: No Pulmonary Medical History: Reports: Hx Asthma, Hx Bronchitis Denies: Hx Pneumonia Renal/ Medical History: Denies: Hx Peritoneal Dialysis Psychiatric Medical History: Reports: Hx Anxiety, Hx Attention Deficit Hyperactivity Disorder, Hx Bipolar Disorder, Hx Depression Past Surgical History: Reports: Hx Tubal Ligation - Immunizations Immunizations up to date: No Hx Diphtheria, Pertussis, Tetanus Vaccination: Yes - unsure Review of Systems - Review of Systems Notes: Constitutional: No fevers. No chills. EENT: No eye redness. No eye pain. No ear pain. No sore throat. Cardiovascular: No chest pain. No palpitations. Respiratory: Positive for cough, wheezing, and shortness of breath Gastrointestinal: No abdominal pain. No nausea, vomiting, or diarrhea. Genitourinary: Atraumatic. No lesions. No pain. No discharge. Musculoskeletal: Atraumatic. No swelling. No deformities. Skin: No rash or lesions. Lymphatic: No swollen lymph nodes. Neurologic: No headache. No syncope. Psychiatric: No suicidal or homicidal ideation. Physical Exam - Vital signs Vitals: Temp Pulse Resp BP Pulse Ox 98.3 F 86 16 151/80 H 99 08/07/20 10:36 08/07/20 10:36 08/07/20 10:36 08/07/20 10:36 08/07/20 10:36 - Notes Notes: General: Well-developed, well-nourished. In no acute distress. Non-toxic appear ing. Cardiac: Well-perfused. Regular rate and rhythm. No murmurs, rubs, or gallops. Pulmonary: No respiratory distress. Bilateral rhonchi and wheezes. No retractions. Abdominal: Non-distended. Non-rigid. Bowels sounds are present in all four quadrants. No guarding or rebound. HEENT: Head is atraumatic. Conjunctivae not reddened. No tearing. PERRL. EOMI. Orbits atraumatic. No periorbital swelling or erythema. Oropharynx is without erythema, swelling, or exudates. Neck: Supple. No adenopathy. No meningismus. Dermatologic: Warm with good turgor. No rash. Atraumatic. Chest: Atraumatic. No chest wall tenderness to palpation. Musculoskeletal: Moves all extremities well. No range of motion deficits. no muscular or joint tenderness. No paraspinal muscle tenderness. no midline spinal tenderness or step-off. Genitourinary: Examination deferred Neurologic: No gross neurologic deficits. Psychiatric: Normal mood. Course - Re-evaluation Re-evalutation: 08/07/20 14:37 Patient reports a upper respiratory infection that sounds like it is turned into a bronchitis. Apparently in triage the patient said that she took a relatives albuterol treatment and it made her feel jittery and gave her chest tightness. Thus a cardiac work-up was ordered from the [facility] region. This definitely does not sound like a cardiac presentation but rather bronchospasm. Definitely does not sound like a COVID case. We will proceed with oral prednisone and 3 DuoNeb treatments and reassess. We will add antibiotics if it looks like there is any infiltrates on the chest x-ray. 08/07/20 15:59 Patient still wheezing profusely bilaterally. She is having a lot of mucus production with her cough. Chest x-ray is negative. Steroids have been given. Will add a dose of guaifenesin to help her expectorate a little bit better. She will need another round of albuterol shortly. Oxygen saturation is around 93 to 94% on room air. 08/07/20 18:31 Patient continues extremely wheezy. We will go ahead and get her COVID screening done. We will go ahead and scan her chest for any other pathology that I may be missing. Continuous albuterol nebulizer ordered. 08/07/20 19:52 Patient is actually sounding better in terms of her breath sounds. She just had her COVID test and is coughing vigorously. It seems to have passed. Mildly tachycardic. CT shows no pulmonary emboli. 08/07/20 20:[address] scan shows no evidence of pulmonary embolus. There is no mention of any infiltrates. It seems that the steroids have finally started to help the patient. Her breath sounds are significantly better mildly tachycardic but satting 95 to 97% on room air. I had the nurse take her for a walk down the [place]. She got mildly tachycardic (110 BPM)with exertion but keeping her sats up. I think we can safely discharge her home at this point with some a azithromycin, prednisone, metered-dose inhaler, and guaifenesin. She has been tested for coronavirus although I still somewhat doubt that is a possibility. Will treat her with the appropriate quarantine instructions until she knows for sure. - Vital Signs Vital signs: Temp Pulse Resp BP Pulse Ox 98.3 F 105 H 20 180/165 H 97 08/07/20 10:36 08/07/20 20:25 08/07/20 20:25 08/07/20 19:01 08/07/20 20:25 - Laboratory Result Diagrams: 08/07/20 15:20 08/07/20 15:20 Laboratory results interpreted by me: 08/07/20 08/07/20 15:20 15:20 RDW 14.1 H BUN 5 L - Diagnostic Test Radiology reviewed: Reports reviewed Discharge - Discharge Clinical Impression: Bronchospasm, Elevated blood pressure reading Upper respiratory infection Qualifiers: URI type: unspecified URI Qualified Code(s): J06.9 - Acute upper respiratory infection, unspecified Condition: Good Disposition: HOME, SELF-CARE Instructions: COVID-19 Guidance for Persons Under Investigation, Upper Respiratory Illness ([facility]), Bronchitis With Bronchospasm (Wheezing) ([facility]) Prescriptions: Prednisone [Deltasone 20 mg Tablet] 3 tab PO DAILY 5 Days #15 tablet Guaifenesin [Mucus ER] 600 mg PO BID 7 Days #14 tab.er.12h Albuterol Sulfate [Proair HFA Inhalation Aerosol 8.5 gm MDI] 2 puff IH Q4H PRN #1 mdi PRN Reason: Azithromycin [Zithromax 250 mg Tablet] 250 mg PO ASDIR PRN #6 tablet PRN Reason: Forms: Return to Work Referrals: THERESA CARL MD [COMMUNITY BASED STAFF] - Follow up as needed
--- NOTE | 2020-08-07 14:40 | RADIOLOGY REPORT (SQ) ---
EXAM DESCRIPTION: CHEST SINGLE VIEW IMAGES COMPLETED DATE/TIME: 08/07/2020 2:29 pm REASON FOR STUDY: chest tightness COMPARISON: 01/07/2020. EXAM PARAMETERS: NUMBER OF VIEWS: One view. TECHNIQUE: Single frontal radiographic view of the chest acquired. RADIATION DOSE: NA LIMITATIONS: None. FINDINGS: LUNGS AND PLEURA: No opacities, masses or pneumothorax. No pleural effusion. MEDIASTINUM AND HILAR STRUCTURES: No masses. Contour normal. HEART AND VASCULAR STRUCTURES: Heart normal in size. Normal vasculature. BONES: No acute findings. HARDWARE: None in the chest. OTHER: No other significant finding. IMPRESSION: NO ACUTE RADIOGRAPHIC FINDING IN THE CHEST. TECHNICAL DOCUMENTATION: JOB ID: [id number] 2010 [employer]- All Rights Reserved Reading location - IP/workstation name: [email or web address]
[2020-08-07 15:02] LABS: A TYPE INFLUENZA AG NEGATIVE (NEGATIVE); B INFLUENZA AG NEGATIVE (NEGATIVE)
[2020-08-07 15:34] LABS: ABSOLUTE EOSINOPHILS # (AUTO) 0.4 10^3/uL (0.0-0.6); ABSOLUTE LYMPHOCYTES (AUTO) 2.2 10^3/uL (0.5-4.7); ABSOLUTE MONOCYTES (AUTO) 0.7 10^3/uL (0.1-1.4); ABSOLUTE NEUT (AUTO) 4.5 10^3/uL (1.7-8.2); BASOPHILS % (AUTO) 0.6 % (0-2); EOSINOPHILS % (AUTO) 5.5 % (0-6); HEMATOCRIT 41.4 % (36.0-47.0); HEMOGLOBIN 14.7 g/dL (12.0-15.5); LYMPHOCYTES % (AUTO) 27.5 % (13-45); MEAN CORPUSCULAR HEMOGLOBIN 33.1 pg (27.0-33.4); MEAN CORPUSCULAR HGB CONC 35.4 g/dL (32.0-36.0); MEAN CORPUSCULAR VOLUME 94 fl (80-97); PLATELET COUNT 200 10^3/uL (150-450); RED BLOOD COUNT 4.42 10^6/uL (3.72-5.28); RED CELL DISTRIBUTION WIDTH 14.1 % (11.5-14.0); SEGMENTED NEUTROPHILS % (AUTO) 57.4 % (42-78); TOTAL CELLS COUNTED % (AUTO) 100 %; WHITE BLOOD COUNT 7.8 10^3/uL (4.0-10.5)
[2020-08-07 15:46] LABS: ALBUMIN 4.6 g/dL (3.5-5.0); ALKALINE PHOSPHATASE 114 U/L (38-126); ANION GAP 10 (5-19); ASPARTATE AMINO TRANSFERASE 27 U/L (14-36); BILIRUBIN,DIRECT 0.3 mg/dL (0.0-0.4); BILIRUBIN,TOTAL 0.6 mg/dL (0.2-1.3); BLOOD UREA NITROGEN 5 mg/dL (7-20); CALCIUM 9.8 mg/dL (8.4-10.2); CARBON DIOXIDE 27 mmol/L (22-30); CHLORIDE 101 mmol/L (98-107); GLUCOSE 100 mg/dL (75-110); POTASSIUM 4.8 mmol/L (3.6-5.0)
[2020-08-07] MEDS ORDERED: GUAIFENESIN 600 MG TABLET.SA PO ONE (15:58)
[2020-08-07] MEDS ORDERED: ALBUTEROL SULFATE 0.083% NEB 2.5 MG/3 ML AMPUL NEB ONE ×2 (16:20→18:29)
--- NOTE | 2020-08-07 17:37 | EKG REPORT ---
SEVERITY:- ABNORMAL ECG - SINUS RHYTHM PROBABLE LEFT ATRIAL ABNORMALITY LEFT VENTRICULAR HYPERTROPHY : Confirmed by: Freya Webb MD 07-Aug-2020 17:36:36
--- NOTE | 2020-08-07 19:37 | RADIOLOGY REPORT (SQ) ---
EXAM DESCRIPTION: CTA CHEST IMAGES COMPLETED DATE/TIME: 08/07/2020 7:17 pm REASON FOR STUDY: dyspnea, hypoxia COMPARISON: None. TECHNIQUE: CT scan of the chest performed using helical scanning technique with dynamic intravenous contrast injection. Images reviewed with lung, soft tissue and bone windows. Reconstructed coronal and sagittal MPR images reviewed. Additional 3 dimensional post-processing performed to develop Maximal Intensity Projection images (TN P). All images stored on PACS. All CT scanners at this facility use dose modulation, iterative reconstruction, and/or weight based d osing when appropriate to reduce radiation dose to as low as reasonably achievable (ALARA). [facility]: Dose Right [facility]: CareDose [facility]: Dose Right [facility]: Teradose 4D [facility]: [employer] CONTRAST TYPE AND DOSE: contrast/concentration: Isovue 350.00 mmol/ml; Total Contrast Delivered: 50. 0 ml; Total Saline Delivered: 49.1 ml Contrast bolus optimized for the pulmonary arteries. Not diagnostic for the aorta. RENAL FUNCTION: GFR > 60. RADIATION DOSE: CT Rad equipment meets quality standard of care and radiation dose reduction techniq ues were employed. CTDIvol: 9.9 - 14.3 mGy. DLP: 559 mGy-cm. . LIMITATIONS: None. FINDINGS: LUNGS AND PLEURA: No pneumothorax.Scattered areas of subpleural interstitial thickening bi laterally. No consolidation or pleural effusion. AORTA AND GREAT VESSELS: No aneurysm. Contrast bolus not optimized for the aorta. HEART: No pericardial effusion. Moderate coronary artery calcifications. PULMONARY ARTERIES: No emboli visualized in the main pulmonary arteries or the segmental branches. HILAR AND MEDIASTINAL STRUCTURES: No identified masses or abnormal nodes. HARDWARE: None in the chest. UPPER ABDOMEN: No significant findings. Limited exam. THYROID AND OTHER SOFT TISSUES: No masses. No adenopathy. BONES: No acute finding. 3D MIPS: Confirm above findings. OTHER: No other significant finding. IMPRESSION: No emboli visualized in the main pulmonary arteries or the segmental branches.Scattered areas of subpleural interstitial thickening bilaterally. No consolidation or pleural effusion. Moderate coronary artery calcifications. COMMENT: Quality ID # [id number]: Final reports with documentation of one or more dose reduction techniques (e.g., Automated exposure control, adjustment of the mA and/or kV according to patient size, use of iterative reconstruction technique) TECHNICAL DOCUMENTATION: JOB ID: [id number]-72 2010 [employer]- All Rights Reserved Reading location - IP/workstation name: [email or web address]
[2020-08-07 21:00] VITALS: BP 168/104
== END 2020-08-07 20:54 | disposition home or self-care (01) ==
LOC: ER 10:23
DX: J06.9 Acute upper respiratory infection, unspecified (principal); J98.01 Acute bronchospasm; R03.0 Elevated blood-pressure reading, without diagnosis of hypertension; R05 Cough; R25.1 Tremor, unspecified; R07.9 Chest pain, unspecified; R06.02 Shortness of breath; R06.2 Wheezing; R00.0 Tachycardia, unspecified; Z79.82 Long term (current) use of aspirin; Z79.899 Other long term (current) drug therapy; Z88.8 Allergy status to other drugs, medicaments and biological substances; Z20.828 Contact with and (suspected) exposure to other viral communicable diseases
CPT/HCPCS: 93005; 94640 ×2; 99285; 36415; 87070; 87880; 82962; 85025; 87635; 87077; 80053; 84484; 87804; 71045; 71275; 93010; J7512; J7613; C9803

== ENCOUNTER 2020-08-19 03:58 | Emergency (ER) | payer SELFPAY ==
[2020-08-19] MEDS ORDERED: MORPHINE SULFATE 10 MG/ML INJ IV ONE (04:37)
[2020-08-19] MEDS ORDERED: ONDANSETRON HCL INJ/PF 4 MG/2 ML SDV IV ONE (04:37)
--- NOTE | 2020-08-19 04:44 | ER Document Report ---
ED General - General TRAVEL OUTSIDE OF THE [place] IN LAST 30 DAYS: No - HPI Associated symptoms: Nausea Exacerbated by: Movement Relieved by: Denies - Related Data Home Medications: trazadone, atorvastatin, albuterol, nitro, asa <CHANTELL MOFFETT IV - Last Filed: 08/19/20 04:38> <GAVINO NUNO - Last Filed: 08/19/20 08:52> - General Chief Complaint: Low Back Pain Stated Complaint: low back pain,cough Time Seen by Provider: 08/19/20 04:20 - HPI Context: This is a 50-year-old female who presents to the emergency department with multi ple complaints. Patient states she has bilateral low back pain and dark looking urine that is reportedly orange in color. Patient denies taking any Azo or Pyridium. Patient states that she is also constipated and has had to self disimpact to remove stool from her rectal vault. Patient also states she wants to be tested for gonorrhea and chlamydia because she was having relations with the person and the condom broke. Patient states her pain is a 5 out of 5. Patient describes the pain as sharp. Patient states there is no alleviating factors. Patient states exacerbating factors include movement and urination as well as trying to have a bowel movement. Patient denies loss of sense of smell or sense of taste, history of Covid infection, known exposure to Covid positive persons, known exposure to persons under investigation for COVID-19. (CHANTELL MOFFETT IV) - Related Data Allergies/Adverse Reactions: ibuprofen [Ibuprofen] Adverse Reaction (Verified 08/07/20 12:00) GI upset Past Medical History - General Information source: Patient - Social History Smoking Status: Current Some Day Smoker Frequency of alcohol use: None Drug Abuse: None Family History: Reviewed & Not Pertinent, Arthritis, CAD, CVA, Hyperlipidemia, Hypertension Patient has homicidal ideation: No Pulmonary Medical History: Reports: Hx Asthma, Hx Bronchitis Denies: Hx Pneumonia Renal/ Medical History: Denies: Hx Peritoneal Dialysis Psychiatric Medical History: Reports: Hx Anxiety, Hx Attention Deficit Hyperactivity Disorder, Hx Bipolar Disorder, Hx Depression Past Surgical History: Reports: Hx Tubal Ligation - Immunizations Immunizations up to date: No Hx Diphtheria, Pertussis, Tetanus Vaccination: Yes - unsure <CHANTELL MOFFETT IV - Last Filed: 08/19/20 04:38> Review of Systems - Review of Systems Constitutional: No symptoms reported EENT: No symptoms reported Cardiovascular: No symptoms reported Respiratory: No symptoms reported Gastrointestinal: Constipation Genitourinary: Other - Change in color of urine Female Genitourinary: No symptoms reported Musculoskeletal: Back pain Skin: No symptoms reported Hematologic/Lymphatic: No symptoms reported Neurological/Psychological: No symptoms reported -: Yes All other systems reviewed and negative <ZUHAIRCHANTELL RAGSDALE IV - Last Filed: 08/19/20 04:38> Physical Exam <CHANTELL MOFFETT KARINA - Last Filed: 08/19/20 04:38> - Vital signs Vitals: Temp Pulse Resp BP Pulse Ox 98.6 F 88 21 H 108/64 96 08/19/20 04:08 08/19/20 04:08 08/19/20 04:08 08/19/20 04:08 08/19/20 04:08 - Notes Notes: CONSTITUTIONAL [Vital signs reviewed, Patient appears uncomfortable, Alert and oriented X 3, Normal stature.] HEAD [Atraumatic, Normocephalic.] EYES [Eyes are normal to inspection, No discharge from eyes, Extraocular muscles intact, Sclera are normal, Conjunctiva are normal.] NECK [Normal ROM, No jugular venous distention, No meningeal signs, no carotid bruit.] RESPIRATORY CHEST [Chest is nontender, Breath sounds normal, No respiratory distress.] CARDIOVASCULAR [RRR, No murmurs, Normal S1 S2, No rub, No gallop.] ABDOMEN [Abdomen is nontender, No pulsatile masses, No other masses, Bowel sounds normal, No distension, No peritoneal signs, No hernias.] BACK [There is bilateral CVA Tenderness UPPER EXTREMITY [Inspection normal, No cyanosis, No clubbing, No edema, 2+ radial pulses.] LOWER EXTREMITY [Inspection normal, No cyanosis, No clubbing, No edema, No calf tenderness, 2+ femoral pulses.] NEURO [No focal motor deficits, No focal sensory deficits, Speech normal.] SKIN [Skin is warm, Skin is dry, Skin is normal color.] LYMPHATIC [No adenopathy in neck.] PSYCHIATRIC [Normal affect. ] (CHANTELL MOFFETT IV) Course - Laboratory Result Diagrams: 08/19/20 04:47 08/19/20 04:47 - Diagnostic Test Radiology reviewed: Image reviewed, Reports reviewed <GAVINO NUNO - Last Filed: 08/19/20 08:52> - Re-evaluation Re-evalutation: 08/19/20 08:47 Patient resting in bed mostly sleeping. When aroused patient complains of having pinched nerve in her back and states she needs pain medication states her pain is about 4 out of 6. Instructed patient that her x-ray of her back showed no acute process and no evidence that there was any disc disease with preserved disc spaces between her bones. And no evidence of any osseous injury. Also explained the patient she did not have an sexually transmitted disease or chlamydia chlamydia or gonorrhea. Also explained the patient that her urine drug screen positive for opiates cocaine and marijuana. Patient reports that she does smoke marijuana and she did not notice cocaine within in the marijuana so she says that was unknown to her the opiates can be explained because patient has received IV morphine prior to my taking on her care. Patient appears to be upset that with me inasmuch as told her I was not writing a narcotic medication for her. Recommended Tylenol for her and she says does nothing for her and she does not want to be prescribed or take Tylenol. Patient did agree to taking steroid. IV Decadron 2 mg has been ordered and I will be writing prescription for patient to take a 5-day Dosepak. (GAVINO NUNO) - Vital Signs Vital signs: Temp Pulse Resp BP Pulse Ox 98.5 F 88 21 H 108/64 96 08/19/20 07:51 08/19/20 04:08 08/19/20 04:08 08/19/20 04:08 08/19/20 04:08 08/19/20 08:49 Vital signs stable. (GAVINO NUNO) - Laboratory Laboratory results interpreted by me: 08/19/20 08/19/20 08/19/20 04:47 04:47 06:10 WBC 11.0 H Hct 35.7 L Glucose 130 H Albumin 3.4 L Urine Protein 30 H Urine Urobilinogen 4.0 H 08/19/20 08:50 08/19/20 04:47 08/19/20 04:47 MCV 93 fl (80-97) 08/19/20 04:47 MCH 33.1 pg (27.0-33.4) 08/19/20 04:47 MCHC 35.5 g/dL (32.0-36.0) 08/19/20 04:47 RDW 14.0 % (11.5-14.0) 08/19/20 04:47 Seg Neutrophils % 68.9 % (42-78) 08/19/20 04:47 Chloride 104 mmol/L (98-107) 08/19/20 04:47 Carbon Dioxide 27 mmol/L (22-30) 08/19/20 04:47 Anion Gap 7 (5-19) 08/19/20 04:47 Est GFR ( Amer) > 60 (>60) 08/19/20 04:47 Glucose 130 mg/dL (75-110) H 08/19/20 04:47 Calcium 9.1 mg/dL (8.4-10.2) 08/19/20 04:47 Total Bilirubin 0.4 mg/dL (0.2-1.3) 08/19/20 04:47 AST 31 U/L (14-36) 08/19/20 04:47 Alkaline Phosphatase 95 U/L (38-126) 08/19/20 04:47 Total Protein 6.5 g/dL (6.3-8.2) 08/19/20 04:47 Albumin 3.4 g/dL (3.5-5.0) L 08/19/20 04:47 Urine Color YELLOW 08/19/20 06:10 Urine Appearance CLEAR 08/19/20 06:10 Urine pH 6.0 (5.0-9.0) 08/19/20 06:10 Ur Specific [place] 1.027 08/19/20 06:10 Urine Protein 30 mg/dL (NEGATIVE) H 08/19/20 06:10 Urine Glucose (UA) NEGATIVE mg/dL (NEGATIVE) 08/19/20 06:10 Urine Ketones NEGATIVE mg/dL (NEGATIVE) 08/19/20 06:10 Urine Blood NEGATIVE (NEGATIVE) 08/19/20 06:10 Urine Nitrite NEGATIVE (NEGATIVE) 08/19/20 06:10 Ur Leukocyte Esterase NEGATIVE (NEGATIVE) 08/19/20 06:10 Urine WBC (Auto) 0 /HPF 08/19/20 06:10 Urine RBC (Auto) 1 /HPF 08/19/20 06:10 Patient has no evidence of of urinary tract infection and her labs are within normal limits. Patient does have positive urine drug screen for opiates cocaine and marijuana. Patient's STD work-up reports negative for chlamydia and gonorrhea. (GAVINO NUNO) - Diagnostic Test Radiology results interpreted by me: 08/19/20 08:51 Chest X-Ray 08/19/20 07:19 IMPRESSION: 1. No acute pulmonary process identified. Lumbar Spine X-Ray 08/19/20 07:20 IMPRESSION: No evidence of acute osseous injury or significant degenerative changes. Incidental finding of vascular calcifications greater than that expected for patient age. Chest x-ray shows no acute process no infiltrate. Lumbar spine shows no acute process. (GAVINO NUNO) Discharge <CHANTELL MOFFETT IV - Last Filed: 08/19/20 04:38> <GAVINO NUNO - Last Filed: 08/19/20 08:52> - Discharge Clinical Impression: Low back pain Condition: Stable Disposition: HOME, SELF-CARE Instructions: Low Back Pain ([facility]) Prescriptions: Methylprednisolone [Medrol Dosepack (4 mg/Tab) 21 Tab/Dosepak] 4 mg PO ASDIR PRN #21 tab.ds.pk PRN Reason:
[2020-08-19] MEDS ORDERED: NORMAL SALINE 1000 ML 1,000 ML IV ONE (04:52)
[2020-08-19 05:55] LABS: ABSOLUTE EOSINOPHILS # (AUTO) 0.2 10^3/uL (0.0-0.6); ABSOLUTE LYMPHOCYTES (AUTO) 2.3 10^3/uL (0.5-4.7); ABSOLUTE MONOCYTES (AUTO) 0.8 10^3/uL (0.1-1.4); ABSOLUTE NEUT (AUTO) 7.6 10^3/uL (1.7-8.2); BASOPHILS % (AUTO) 0.3 % (0-2); EOSINOPHILS % (AUTO) 2.1 % (0-6); HEMATOCRIT 35.7 % (36.0-47.0); HEMOGLOBIN 12.7 g/dL (12.0-15.5); LYMPHOCYTES % (AUTO) 21.1 % (13-45); MEAN CORPUSCULAR HEMOGLOBIN 33.1 pg (27.0-33.4); MEAN CORPUSCULAR HGB CONC 35.5 g/dL (32.0-36.0); MEAN CORPUSCULAR VOLUME 93 fl (80-97); MONOCYTES % (AUTO) 7.6 % (3-13); PLATELET COUNT 228 10^3/uL (150-450); RED BLOOD COUNT 3.83 10^6/uL (3.72-5.28); SEGMENTED NEUTROPHILS % (AUTO) 68.9 % (42-78); TOTAL CELLS COUNTED % (AUTO) 100 %
[2020-08-19 06:08] LABS: ALBUMIN 3.4 g/dL (3.5-5.0); ALKALINE PHOSPHATASE 95 U/L (38-126); ANION GAP 7 (5-19); ASPARTATE AMINO TRANSFERASE 31 U/L (14-36); BILIRUBIN,DIRECT 0.3 mg/dL (0.0-0.4); BILIRUBIN,TOTAL 0.4 mg/dL (0.2-1.3); BLOOD UREA NITROGEN 9 mg/dL (7-20); CALCIUM 9.1 mg/dL (8.4-10.2); CARBON DIOXIDE 27 mmol/L (22-30); CHLORIDE 104 mmol/L (98-107); GLUCOSE 130 mg/dL (75-110); POTASSIUM 4.2 mmol/L (3.6-5.0); TOTAL PROTEIN 6.5 g/dL (6.3-8.2)
[2020-08-19 07:05] LABS: APPEARANCE,URINE CLEAR; BILIRUBIN,URINE NEGATIVE (NEGATIVE); GLUCOSE, URINE NEGATIVE (NEGATIVE); KETONES,URINE NEGATIVE (NEGATIVE); LEUKOCYTE ESTERASE,URINE NEGATIVE (NEGATIVE); NITRITE,URINE NEGATIVE (NEGATIVE); PROTEIN,URINE 30 mg/dL (NEGATIVE); URINE SPECIFIC GRAVITY 1.027
[2020-08-19 07:06] LABS: COLOR,URINE YELLOW
[2020-08-19 07:19] LABS: URINE AMPHETAMINES SCREEN NEGATIVE; URINE BARBITURATES SCREEN NEGATIVE; URINE BENZODIAZEPINES SCREEN NEGATIVE; URINE METHADONE SCREEN NEGATIVE; URINE PHENCYCLIDINE SCREEN NEGATIVE
[2020-08-19 07:21] LABS: URINE COCAINE SCREEN UNCONFIRMED POSITIVE; URINE MARIJUANA (THC) SCREEN UNCONFIRMED POSITIVE
--- NOTE | 2020-08-19 07:59 | RADIOLOGY REPORT (SQ) ---
EXAM DESCRIPTION: XR CHEST 2 VIEWS COMPLETED DATE/TME: 08/19/2020 07:19 CLINICAL HISTORY: cough COMPARISON: None. FINDINGS: Frontal and lateral radiographic views of the chest. Cardiomediastinal silhouette: Normal size and contour. Lungs: No consolidation, pneumothorax, or pleural effusion. Bones: No acute osseous abnormality. Upper abdomen: No abnormality identified. IMPRESSION: 1. No acute pulmonary process identified.
[2020-08-19 08:07] LABS: CHLAM PCR NOT DETECTED (NOT DETECT)
--- NOTE | 2020-08-19 08:10 | RADIOLOGY REPORT (SQ) ---
EXAM DESCRIPTION: L SPINE WHOLE IMAGES COMPLETED DATE/TIME: 08/19/2020 7:44 am REASON FOR STUDY: low back pain COMPARISON: 10/30/2012 NUMBER OF VIEWS: Five views including obliques. TECHNIQUE: AP, lateral, oblique, and sacral radiographic images acquired of the lumbar spine. LIMITATIONS: None. FINDINGS: MINERALIZATION: Normal. SEGMENTATION: Normal. No transitional anatomy. ALIGNMENT: Normal. VERTEBRAE: Maintained height. No fracture or worrisome bone lesion. DISCS: Preserved height. No significant osteophytes or end plate irregularity. POSTERIOR ELEMENTS: Pedicles and facets are intact. No pars defect or posterior arch defects. HARDWARE: None in the spine. PARASPINAL SOFT TISSUES: Atherosclerotic vascular calcifications are seen of the abdominal aorta and iliac arteries. PELVIS: Intact as visualized. No fractures or worrisome bone lesions. SI joints intact. OTHER: No other significant finding. IMPRESSION: No evidence of acute osseous injury or significant degenerative changes. Incidental fin ding of vascular calcifications greater than that expected for patient age. TECHNICAL DOCUMENTATION: JOB ID: [id number] 2010 [employer]- All Rights Reserved Reading location - IP/workstation name: [email or web address]
[2020-08-19] MEDS ORDERED: DEXAMETHASONE SOD PHOSPHATE INJ 4 MG/1 ML VIAL IV ONE (08:45)
[2020-08-19 09:04] VITALS: BP 152/84
== END 2020-08-19 09:10 | disposition home or self-care (01) ==
LOC: ER 03:58
DX: M54.5 Low back pain (principal); R11.10 Vomiting, unspecified; R05 Cough; K59.00 Constipation, unspecified; F17.200 Nicotine dependence, unspecified, uncomplicated
CPT/HCPCS: 99284; 96361; 96374; 96375; 36415; 85025; 80053; 81001; 80307; 87491; 87591; 71046; 72110; J1100; J2270; J2405; J7030